=== PATIENT | male | born 1990 | race Caucasian/White ===

== ENCOUNTER 2016-04-10 16:06 | Emergency (ER) | payer MEDICAID, SELFPAY ==
[~2016-04-10 16:06] MED LIST: /TAMS4CA GT; ABIL1TAB5 PO; CIPR500T89 PO; DEPA250T32 PO; DEPAKOTE PO; FLOM5CAP PO; MELA0.02 PO; No Historical Meds; PERC5TAB6 PO; PERCOCET PO; TAMS0.4C PO; TRAZ50TA4 PO; ZOFR20TA PO
[2016-04-10] MEDS ORDERED: ACETAMINOPHEN 325 MG TAB As Ordered ONE (17:51)
[2016-04-10 18:02] LABS: BASO # 0.1 K/mm3 (0.0-0.2); EOS # 0.2 K/mm3 (0.0-0.50); EOS % 2.4 % (0.0-3.0); LARGE UNSTAINED CELL # 0.2 K/mm3 (0.0-0.4); LARGE UNSTAINED CELL % 3.6 % (0.0-4.0); LYMPH # 1.7 K/mm3 (1.5-6.5); LYMPH % 25.3 % (24.0-44.0); MEAN CORPUSCULAR HEMOGLOBIN 30.5 pg (27.0-33.0); MEAN CORPUSCULAR HGB CONC 34.6 g/dl (32.0-36.5); MEAN CORPUSCULAR VOLUME 88.4 fl (80.0-96.0); MONO # 0.5 K/mm3 (0.0-0.8); MONO % 6.8 % (0.0-5.0); NEUTROPHILS # 4.1 K/mm3 (1.8-7.7); NEUTROPHILS % 60.8 % (36.0-66.0); PLATELET COUNT, AUTOMATED 220 k/mm3 (150-450); RED CELL DISTRIBUTION WIDTH 12.1 % (11.5-14.5); WHITE BLOOD COUNT 6.7 K/mm3 (4.0-10.0)
[2016-04-10 18:05] LABS: CALCIUM OXALATE CRYSTALS SMALL
[2016-04-10 18:38] LABS: ANION GAP 2 MEQ/L (8-16); BLOOD UREA NITROGEN 18 MG/DL (7-18); CALCIUM LEVEL 8.8 MG/DL (8.5-10.1); CARBON DIOXIDE LEVEL 36 MEQ/L (21-32); CHLORIDE LEVEL 105 MEQ/L (98-107); CREATININE FOR GFR 0.82 MG/DL (0.70-1.30); GLOMERULAR FILTRATION RATE > 60.0 (>60); GLUCOSE, FASTING 75 MG/DL (70-105); POTASSIUM SERUM 4.7 MEQ/L (3.5-5.1); SODIUM LEVEL 143 MEQ/L (136-145)
--- NOTE | 2016-04-10 19:50 | REPUSA ---
CLINICAL HISTORY: History of bilateral hernia age 3 and 16. Both of hernias was reported. TECHNIQUE: Realtime sonographic images were obtained in multiple projections. Evaluation of right in guinal hernia. COMMENTS: Right inguinal mesenteric fat hernia seen with Valsalva. Hernia is reducible with rest. IMPRESSION: Right inguinal mesenteric fat hernia seen with Valsalva. Hernia is reducible with rest. Thank you for your kind referral of this patient. We appreciate the opportunity to participate in thi s patient's care.
--- NOTE | 2016-04-10 20:16 | EDDOCDS ---
Nurse's Notes [facility] Name: Elmer Marley Age: 25 yrs Sex: Male : 1990 Arrival Date: 04/10/2016 Time: 16:06 Bed PD Private MD: NO PRIMARY PHYSICIAN, . Diagnosis: Unilateral inguinal hernia, without obstruction or gangrene-right side, reducible and only containing mesenteric fat Presentation: 04/10 16:21 Presenting complaint: Patient states: Right inguinal swelling and pain for 2 days. rs3 Adult Sepsis Screening: The patient does not have new or worsening altered mentation. Patient's respiratory rate is less than 22. Systolic blood pressure is greater than 100. Patient has a qSOFA score of 0- Negative Sepsis Screen. Suicide/Homicide risk assessment- the patient denies having any suicidal and/or homicidal ideations and does not present with any other emotional, behavioral or mental health complaints. Status: Patient is not a business services sales agent or dependent. Transition of care: patient was not received from another setting of care. 16:21 Acuity: ROB Level 4 rs3 16:21 Method Of Arrival: Walkin/Carried/Asstd rs3 Triage Assessment: 16:23 General: Appears in no apparent distress. Pain: Pain At worst was 3 out of 10 on a pain rs3 scale. HIV screening NA for this visit Offered previously. GI: Reports lower abdominal pain. Historical: - Allergies: no known allergies; - Home Meds: 1. none - PMHx: Hepatitis C; Polycystic Kidney Disease; - PSHx: Hernia repair; Lithotripsy; - Social history: Smoking status: Patient uses tobacco products, light tobacco smoker. No barriers to communication noted, The patient speaks fluent Bulgarian, Patient uses street drugs, marijuana. - Family history: Not pertinent. - : The pt / caregiver states he / she is not on anticoagulants. Home medication list is obtained from the patient. - Exposure Risk Screening:: None identified. Screenin:14 Screening information is obtained from the patient. Fall risk: No risks identified. rs3 Assistance ADL's: requires no assistance with activities of daily living. Abuse/DV Screen: The patient / caregiver reports he/she is: not in a situation that causes fear, pain or injury. Nutritional screening: No deficits noted. Advance Directives: Currently, there is no health care proxy. home support is adequate. Assessment: 20:13 General: Appears in no apparent distress, Behavior is appropriate for age, cooperative. rs3 Respiratory: Airway is patent. GI: Abdomen is non- distended Bowel sounds present X 4 quads. Abd is soft and non tender X 4 quads. Reports lower abdominal pain. Derm: Skin is pink, warm & dry. Vital Signs: 16:08 BP 128 / 87; Pulse 85; Resp 18; Temp 96.9; Pulse Ox 100% ; Weight 72.57 kg; Height 5 elp ft. 8 in. (172.72 cm); Pain 0/10; 19:58 BP 133 / 79; Pulse 73; Resp 18; Temp 97.6(T); Pulse Ox 99% on R/A; Pain 0/10; ar3 16:08 Body Mass Index 24.33 (72.57 kg, 172.72 cm) elp Vitals: 16:08 Log In Time: April 10, 2016 at 16:06. el ED Course: 16:08 Patient visited by Mari Trevino PCA. elp 16:08 NO PRIMARY PHYSICIAN, . is Private Physician. elp 16:08 Patient moved to Waiting elp 16:09 Patient visited by Mari Trevino PCA. elp 16:09 Patient moved to Pre RCE elp 16:22 Triage Initiated rs3 17:27 Patient moved to Triage 2 jo3 17:32 Ramon Hendrickson PA is PHCP. mo1 17:32 Jose Lin MD is Attending Physician. mo1 17:42 Patient visited by Ramon Hendrickson PA. mo1 17:53 Patient moved to TR3 ar3 17:53 UA Sent. ar3 17:53 BMP Sent. ar3 17:53 CBC with Diff Sent. ar3 18:34 Patient moved to Ultrasound hgl 18:54 Patient moved to TR3 hgl 19:17 [facility] Payment Agreement was scanned into [employer] and attached to record. kf3 19:56 Patient moved to PD2 / cz 20:02 Pelvis, limited US Returned. EDMS 20:08 Wilberto Callejas MD is Referral Physician. mo1 20:14 No IV's were initiated during this patient's visit. No procedures done that require rs3 assistance. 20:15 The patient / caregiver is instructed regarding the plan of care and ED course. rs3 Administered Medications: 17:52 Drug: Acetaminophen 975 mg [acetaminophen 325 mg tablet (3 tabs)] Route: PO; jo3 Order Results: Lab Order: CBC with Diff; SPEC'M 04/10/16 17:49 Test: WHITE BLOOD COUNT; Value: 6.7; Range: 4.0-10.0; Units: K/mm3; Status: F Test: RED BLOOD COUNT; Value: 4.88; Range: 4.30-6.10; Units: M/mm3; Status: F Test: HEMOGLOBIN; Value: 14.9; Range: 14.0-18.0; Units: g/dl; Status: F Test: HEMATOCRIT; Value: 43.1; Range: 42.0-52.0; Units: %; Status: F Test: MEAN CORPUSCULAR VOLUME; Value: 88.4; Range: 80.0-96.0; Units: fl; Status: F Test: MEAN CORPUSCULAR HEMOGLOBIN; Value: 30.5; Range: 27.0-33.0; Units: pg; Status: F Test: MEAN CORPUSCULAR HGB CONC; Value: 34.6; Range: 32.0-36.5; Units: g/dl; Status: F Test: RED CELL DISTRIBUTION WIDTH; Value: 12.1; Range: 11.5-14.5; Units: %; Status: F Test: PLATELET COUNT, AUTOMATED; Value: 220; Range: 150-450; Units: k/mm3; Status: F Test: NEUTROPHILS %; Value: 60.8; Range: 36.0-66.0; Units: %; Status: F Test: LYMPH %; Value: 25.3; Range: 24.0-44.0; Units: %; Status: F Test: MONO %; Value: 6.8; Range: 0.0-5.0; Abnormal: Above high normal; Units: %; Status: F Test: EOS %; Value: 2.4; Range: 0.0-3.0; Units: %; Status: F Test: BASO %; Value: 1.0; Range: 0.0-1.0; Units: %; Status: F Test: LARGE UNSTAINED CELL %; Value: 3.6; Range: 0.0-4.0; Units: %; Status: F Test: NEUTROPHILS #; Value: 4.1; Range: 1.8-7.7; Units: K/mm3; Status: F Test: LYMPH #; Value: 1.7; Range: 1.5-6.5; Units: K/mm3; Status: F Test: MONO #; Value: 0.5; Range: 0.0-0.8; Units: K/mm3; Status: F Test: EOS #; Value: 0.2; Range: 0.0-0.50; Units: K/mm3; Status: F Test: BASO #; Value: 0.1; Range: 0.0-0.2; Units: K/mm3; Status: F Test: LARGE UNSTAINED CELL #; Value: 0.2; Range: 0.0-0.4; Units: K/mm3; Status: F Lab Order: [facility] 04/10/16 17:49 Test: GLUCOSE, FASTING; Value: 75; Range: 70-105; Units: MG/DL; Status: F Test: BLOOD UREA NITROGEN; Value: 18; Range: 7-18; Units: MG/DL; Status: F Test: CREATININE FOR GFR; Value: 0.82; Range: 0.70-1.30; Units: MG/DL; Status: F Test: GLOMERULAR FILTRATION RATE; Value: > 60.0; Range: >60; Status: F Test: SODIUM LEVEL; Value: 143; Range: 136-145; Units: MEQ/L; Status: F Test: POTASSIUM SERUM; Value: 4.7; Range: 3.5-5.1; Units: MEQ/L; Status: F Test: CHLORIDE LEVEL; Value: 105; Range: 98-107; Units: MEQ/L; Status: F Test: CARBON DIOXIDE LEVEL; Value: 36; Range: 21-32; Abnormal: Above high normal; Units: MEQ/L; Status: F Test: ANION GAP; Value: 2; Range: 8-16; Abnormal: Below low normal; Units: MEQ/L; Status: F Test: CALCIUM LEVEL; Value: 8.8; Range: 8.5-10.1; Units: MG/DL; Status: F Test Note: ; Units are mL/min/1.73 m2 Chronic Kidney Disease Staging per NKF: Stage I & II GFR >=60 Normal to Mildly Decreased Stage III GFR 30-59 Moderately Decreased Stage IV GFR 15-29 Severely Decreased Stage V GFR <15 Very Little GFR Left ESRD GFR <15 on SOAP SLABBER Lab Order: UA; SPEC'M 04/10/16 17:49 Test: APPEARANCE, URINE; Value: CLEAR; Range: CLEAR; Status: F Test: COLOR, URINE; Value: YELLOW; Range: YELLOW; Status: F Test: PH,URINE; Value: 5.0; Range: 5.0-9.0; Units: UNITS; Status: F Test: SPECIFIC GRAVITY URINE AUTO; Value: 1.023; Range: 1.002-1.035; Status: F Test: PROTEIN, URINE AUTO; Value: NEGATIVE; Range: NEGATIVE; Units: mg/dL; Status: F Test: GLUCOSE, URINE (UA) AUTO; Value: NEGATIVE; Range: NEGATIVE; Units: mg/dL; Status: F Test: KETONE, URINE AUTO; Value: NEGATIVE; Range: NEGATIVE; Units: mg/dL; Status: F Test: UROBILINOGEN, URINE AUTO; Value: 2.0; Range: 0.0-2.0; Abnormal: Above high normal; Units: mg/dL; Status: F Test: BILIRUBIN, URINE AUTO; Value: NEGATIVE; Range: NEGATIVE; Status: F Test: NITRITE, URINE AUTO; Value: NEGATIVE; Range: NEGATIVE; Status: F Test: LEUKOCYTE ESTERASE, URINE AUTO; Value: TRACE; Range: NEGATIVE; Abnormal: Above high normal; Status: F Test: BLOOD, URINE BLOOD; Value: NEGATIVE; Range: NEGATIVE; Status: F Test: WBC, URINE AUTO; Value: 2; Range: 0-3; Units: /HPF; Status: F Test: RBC, URINE AUTO; Value: 3; Range: 0-3; Units: /HPF; Status: F Test: BACTERIA, URINE AUTO; Value: NEGATIVE; Range: NEGATIVE; Status: F Test: SQUAMOUS EPITHELIAL CELL UR AU; Value: 0; Range: 0-6; Units: /HPF; Status: F Test: MUCUS, URINE; Value: SMALL; Range: NEGATIVE; Status: F Test: SPERM, URINE AUTO; Value: SMALL; Range: NONE; Abnormal: Above high normal; Status: F Test: HYALINE CAST, URINE AUTO; Value: 0; Range: 0-1; Units: /LPF; Status: F Test: CALCIUM OXALATE CRYSTALS; Value: SMALL; Range: NONE; Status: F Radiology Order: Pelvis, limited US Test: Pelvis, limited US REASON FOR EXAMINATION: right inguinal pain; ; CLINICAL HISTORY: History of bilateral hernia age 3 and 16. Both of hernias was reported.; ; TECHNIQUE: Realtime sonographic images were obtained in multiple projections. Evaluation of right in; guinal hernia.; ; COMMENTS:; Right inguinal mesenteric fat hernia seen with Valsalva. Hernia is reducible with rest.; ; IMPRESSION:; Right inguinal mesenteric fat hernia seen with Valsalva. Hernia is reducible with rest.; ; Thank you for your kind referral of this patient. We appreciate the opportunity to participate in [facility]; s patient's care.; ; Outcome: 20:08 Discharge ordered by Provider. mo1 20:15 Discharge Assessment: patient administered narcotics - no. The following High Risk rs3 Discharge criteria are identified: None. Discharged to home with family. Condition: stable. Discharge instructions given to patient, Instructed on discharge instructions, follow up and referral plans. medication usage, Demonstrated understanding of instructions, medications, Pt was receptive of discharge instructions/ teaching. Prescriptions given X 1. Ultrasound Study completed. Property :Personal belongings accompany Pt. 20:16 Patient left the ED. rs3 Signatures: Dispatcher [employer] EDMS Madi Jama RN RN cz Helmerci, Jennifer, RN RN jo3 Rayo Reyes, Reg Reg kf3 Amaya Davis RN RN rs3 Bhargavi Darling, SENIOR SQL DATABASE DEVELOPER SENIOR SQL DATABASE DEVELOPER ar3 Akilah, Ramon Jansen PA PA mo1 Mari Trevino, SENIOR SQL DATABASE DEVELOPER SENIOR SQL DATABASE DEVELOPER elp MTDD
--- NOTE | 2016-04-10 20:16 | EDDOCDS ---
Physician Documentation [facility] Name: Elmer Marley Age: 25 yrs Sex: Male : 1990 Arrival Date: 04/10/2016 Time: 16:06 Bed PD Private MD: NO PRIMARY PHYSICIAN, . Disposition: 04/10/16 20:08 Discharged to Home/Self Care. Impression: Unilateral inguinal hernia, without obstruction or gangrene - right side, reducible and only containing mesenteric fat. - Condition is Stable. - Discharge Instructions: Abdominal Pain, Adult, Inguinal Hernia, Adult. - Prescriptions for [place] 5- 325 mg Oral Tablet - take 1 tablet by ORAL route every 6 hours As needed MDD: 4 tabs; 20 tablet. - Medication Reconciliation, Local Pharmacy Hours form. - Follow up: Wilberto Calljeas MD; When: Call to arrange an appointment; Reason: Recheck today's complaints, Continuance of care. - Problem is new. - Symptoms are unchanged. Historical: - Allergies: no known allergies; - Home Meds: 1. none - PMHx: Hepatitis C; Polycystic Kidney Disease; - PSHx: Hernia repair; Lithotripsy; - Social history: Smoking status: Patient uses tobacco products, light tobacco smoker. No barriers to communication noted, The patient speaks fluent Montserratian, Patient uses street drugs, marijuana. - Family history: Not pertinent. - : The pt / caregiver states he / she is not on anticoagulants. Home medication list is obtained from the patient. - Exposure Risk Screening:: None identified. Vital Signs: 04/10 16:08 BP 128 / 87; Pulse 85; Resp 18; Temp 96.9; Pulse Ox 100% ; Weight 72.57 kg / 159.99 elp lbs; Height 5 ft. 8 in. (172.72 cm); Pain 0/10; 19:58 BP 133 / 79; Pulse 73; Resp 18; Temp 97.6(T); Pulse Ox 99% on R/A; Pain 0/10; ar3 16:08 Body Mass Index 24.33 (72.57 kg, 172.72 cm) elp MDM: 17:44 Acetaminophen Tablet 975 mg PO once ordered. mo1 17:45 CBC with Diff Ordered. EDMS 17:45 BMP Ordered. EDMS 17:45 UA Ordered. EDMS 18:22 Financial registration complete. kf3 18:39 Pelvis, limited US Ordered. EDMS 18:47 UA Reviewed. mo1 18:48 BMP Reviewed. mo1 18:48 CBC with Diff Reviewed. mo1 19:17 [facility] Payment Agreement was scanned into [employer] and attached to record. kf3 Administered Medications: 17:52 Drug: Acetaminophen 975 mg [acetaminophen 325 mg tablet (3 tabs)] Route: PO; jo3 Signatures: Dispatcher [employer] EDMS Rayo Reyes, Reg Reg kf3 Amaya DavisRN RN rs3 Ramon Hendrickson PA PA mo1 Katya Johnston RN jo3 The chart was reviewed and I authenticate all verbal orders and agree with the evaluation and treatment provided.Corrections: (The following items were deleted from the chart) 18:39 17:45 Abdomen, limited+US ordered. EDMS EDMS Attachments: 19:17 [facility] Payment Agreement kf3 MTDD
--- NOTE | 2016-04-12 21:17 | EDDOCDS ---
Nurse's Notes [facility] Name: Elmer Marley Age: 25 yrs Sex: Male : 1990 Arrival Date: 04/10/2016 Time: 16:06 Bed PD Private MD: NO PRIMARY PHYSICIAN, . Diagnosis: Unilateral inguinal hernia, without obstruction or gangrene-right side, reducible and only containing mesenteric fat Presentation: 04/10 16:21 Presenting complaint: Patient states: Right inguinal swelling and pain for 2 days. rs3 Adult Sepsis Screening: The patient does not have new or worsening altered mentation. Patient's respiratory rate is less than 22. Systolic blood pressure is greater than 100. Patient has a qSOFA score of 0- Negative Sepsis Screen. Suicide/Homicide risk assessment- the patient denies having any suicidal and/or homicidal ideations and does not present with any other emotional, behavioral or mental health complaints. Status: Patient is not a director of professional services or dependent. Transition of care: patient was not received from another setting of care. 16:21 Acuity: ROB Level 4 rs3 16:21 Method Of Arrival: Walkin/Carried/Asstd rs3 Triage Assessment: 16:23 General: Appears in no apparent distress. Pain: Pain At worst was 3 out of 10 on a pain rs3 scale. HIV screening NA for this visit Offered previously. GI: Reports lower abdominal pain. Historical: - Allergies: no known allergies; - Home Meds: 1. none - PMHx: Hepatitis C; Polycystic Kidney Disease; - PSHx: Hernia repair; Lithotripsy; - Social history: Smoking status: Patient uses tobacco products, light tobacco smoker. No barriers to communication noted, The patient speaks fluent Slovak, Patient uses street drugs, marijuana. - Family history: Not pertinent. - : The pt / caregiver states he / she is not on anticoagulants. Home medication list is obtained from the patient. - Exposure Risk Screening:: None identified. Screenin:14 Screening information is obtained from the patient. Fall risk: No risks identified. rs3 Assistance ADL's: requires no assistance with activities of daily living. Abuse/DV Screen: The patient / caregiver reports he/she is: not in a situation that causes fear, pain or injury. Nutritional screening: No deficits noted. Advance Directives: Currently, there is no health care proxy. home support is adequate. Assessment: 20:13 General: Appears in no apparent distress, Behavior is appropriate for age, cooperative. rs3 Respiratory: Airway is patent. GI: Abdomen is non- distended Bowel sounds present X 4 quads. Abd is soft and non tender X 4 quads. Reports lower abdominal pain. Derm: Skin is pink, warm & dry. Vital Signs: 16:08 BP 128 / 87; Pulse 85; Resp 18; Temp 96.9; Pulse Ox 100% ; Weight 72.57 kg; Height 5 elp ft. 8 in. (172.72 cm); Pain 0/10; 19:58 BP 133 / 79; Pulse 73; Resp 18; Temp 97.6(T); Pulse Ox 99% on R/A; Pain 0/10; ar3 16:08 Body Mass Index 24.33 (72.57 kg, 172.72 cm) elp Vitals: 16:08 Log In Time: April 10, 2016 at 16:06. el ED Course: 16:08 Patient visited by Mari Trevino PCA. elp 16:08 NO PRIMARY PHYSICIAN, . is Private Physician. elp 16:08 Patient moved to Waiting elp 16:09 Patient visited by Mari Trevino PCA. elp 16:09 Patient moved to Pre RCE elp 16:22 Triage Initiated rs3 17:27 Patient moved to Triage 2 jo3 17:32 Ramon Hendrickson PA is PHCP. mo1 17:32 Jose Lin MD is Attending Physician. mo1 17:42 Patient visited by Ramon Hendrickson PA. mo1 17:53 Patient moved to TR3 ar3 17:53 UA Sent. ar3 17:53 BMP Sent. ar3 17:53 CBC with Diff Sent. ar3 18:34 Patient moved to Ultrasound hgl 18:54 Patient moved to TR3 hgl 19:17 [facility] [place] was scanned into [email or web address] and attached to record. kf3 19:56 Patient moved to PD2 / cz 20:02 Pelvis, limited US Returned. EDMS 20:08 Wilberto Callejas MD is Referral Physician. mo1 20:14 No IV's were initiated during this patient's visit. No procedures done that require rs3 assistance. 20:15 The patient / caregiver is instructed regarding the plan of care and ED course. rs3 22:24 T-Sheet-- Draft Copy was scanned into [email or web address] and attached to record. klr 04/11 12:05 Radiology Report was scanned into [email or web address] and attached to record. gb Administered Medications: 04/10 17:52 Drug: Acetaminophen 975 mg [acetaminophen 325 mg tablet (3 tabs)] Route: PO; jo3 Order Results: Lab Order: CBC with Diff; SPEC'M 04/10/16 17:49 Test: WHITE BLOOD COUNT; Value: 6.7; Range: 4.0-10.0; Units: K/mm3; Status: F Test: RED BLOOD COUNT; Value: 4.88; Range: 4.30-6.10; Units: M/mm3; Status: F Test: HEMOGLOBIN; Value: 14.9; Range: 14.0-18.0; Units: g/dl; Status: F Test: HEMATOCRIT; Value: 43.1; Range: 42.0-52.0; Units: %; Status: F Test: MEAN CORPUSCULAR VOLUME; Value: 88.4; Range: 80.0-96.0; Units: fl; Status: F Test: MEAN CORPUSCULAR HEMOGLOBIN; Value: 30.5; Range: 27.0-33.0; Units: pg; Status: F Test: MEAN CORPUSCULAR HGB CONC; Value: 34.6; Range: 32.0-36.5; Units: g/dl; Status: F Test: RED CELL DISTRIBUTION WIDTH; Value: 12.1; Range: 11.5-14.5; Units: %; Status: F Test: PLATELET COUNT, AUTOMATED; Value: 220; Range: 150-450; Units: k/mm3; Status: F Test: NEUTROPHILS %; Value: 60.8; Range: 36.0-66.0; Units: %; Status: F Test: LYMPH %; Value: 25.3; Range: 24.0-44.0; Units: %; Status: F Test: MONO %; Value: 6.8; Range: 0.0-5.0; Abnormal: Above high normal; Units: %; Status: F Test: EOS %; Value: 2.4; Range: 0.0-3.0; Units: %; Status: F Test: BASO %; Value: 1.0; Range: 0.0-1.0; Units: %; Status: F Test: LARGE UNSTAINED CELL %; Value: 3.6; Range: 0.0-4.0; Units: %; Status: F Test: NEUTROPHILS #; Value: 4.1; Range: 1.8-7.7; Units: K/mm3; Status: F Test: LYMPH #; Value: 1.7; Range: 1.5-6.5; Units: K/mm3; Status: F Test: MONO #; Value: 0.5; Range: 0.0-0.8; Units: K/mm3; Status: F Test: EOS #; Value: 0.2; Range: 0.0-0.50; Units: K/mm3; Status: F Test: BASO #; Value: 0.1; Range: 0.0-0.2; Units: K/mm3; Status: F Test: LARGE UNSTAINED CELL #; Value: 0.2; Range: 0.0-0.4; Units: K/mm3; Status: F Lab Order: [facility]; SPEC'M 04/10/16 17:49 Test: GLUCOSE, FASTING; Value: 75; Range: 70-105; Units: MG/DL; Status: F Test: BLOOD UREA NITROGEN; Value: 18; Range: 7-18; Units: MG/DL; Status: F Test: CREATININE FOR GFR; Value: 0.82; Range: 0.70-1.30; Units: MG/DL; Status: F Test: GLOMERULAR FILTRATION RATE; Value: > 60.0; Range: >60; Status: F Test: SODIUM LEVEL; Value: 143; Range: 136-145; Units: MEQ/L; Status: F Test: POTASSIUM SERUM; Value: 4.7; Range: 3.5-5.1; Units: MEQ/L; Status: F Test: CHLORIDE LEVEL; Value: 105; Range: 98-107; Units: MEQ/L; Status: F Test: CARBON DIOXIDE LEVEL; Value: 36; Range: 21-32; Abnormal: Above high normal; Units: MEQ/L; Status: F Test: ANION GAP; Value: 2; Range: 8-16; Abnormal: Below low normal; Units: MEQ/L; Status: F Test: CALCIUM LEVEL; Value: 8.8; Range: 8.5-10.1; Units: MG/DL; Status: F Test Note: ; Units are mL/min/1.73 m2 Chronic Kidney Disease Staging per NKF: Stage I & II GFR >=60 Normal to Mildly Decreased Stage III GFR 30-59 Moderately Decreased Stage IV GFR 15-29 Severely Decreased Stage V GFR <15 Very Little GFR Left ESRD GFR <15 on [employer] Lab Order: UA; SPEC'M 04/10/16 17:49 Test: APPEARANCE, URINE; Value: CLEAR; Range: CLEAR; Status: F Test: COLOR, URINE; Value: YELLOW; Range: YELLOW; Status: F Test: PH,URINE; Value: 5.0; Range: 5.0-9.0; Units: UNITS; Status: F Test: SPECIFIC GRAVITY URINE AUTO; Value: 1.023; Range: 1.002-1.035; Status: F Test: PROTEIN, URINE AUTO; Value: NEGATIVE; Range: NEGATIVE; Units: mg/dL; Status: F Test: GLUCOSE, URINE (UA) AUTO; Value: NEGATIVE; Range: NEGATIVE; Units: mg/dL; Status: F Test: KETONE, URINE AUTO; Value: NEGATIVE; Range: NEGATIVE; Units: mg/dL; Status: F Test: UROBILINOGEN, URINE AUTO; Value: 2.0; Range: 0.0-2.0; Abnormal: Above high normal; Units: mg/dL; Status: F Test: BILIRUBIN, URINE AUTO; Value: NEGATIVE; Range: NEGATIVE; Status: F Test: NITRITE, URINE AUTO; Value: NEGATIVE; Range: NEGATIVE; Status: F Test: LEUKOCYTE ESTERASE, URINE AUTO; Value: TRACE; Range: NEGATIVE; Abnormal: Above high normal; Status: F Test: BLOOD, URINE BLOOD; Value: NEGATIVE; Range: NEGATIVE; Status: F Test: WBC, URINE AUTO; Value: 2; Range: 0-3; Units: /HPF; Status: F Test: RBC, URINE AUTO; Value: 3; Range: 0-3; Units: /HPF; Status: F Test: BACTERIA, URINE AUTO; Value: NEGATIVE; Range: NEGATIVE; Status: F Test: SQUAMOUS EPITHELIAL CELL UR AU; Value: 0; Range: 0-6; Units: /HPF; Status: F Test: MUCUS, URINE; Value: SMALL; Range: NEGATIVE; Status: F Test: SPERM, URINE AUTO; Value: SMALL; Range: NONE; Abnormal: Above high normal; Status: F Test: HYALINE CAST, URINE AUTO; Value: 0; Range: 0-1; Units: /LPF; Status: F Test: CALCIUM OXALATE CRYSTALS; Value: SMALL; Range: NONE; Status: F Radiology Order: Pelvis, limited US Test: Pelvis, limited US REASON FOR EXAMINATION: right inguinal pain; ; CLINICAL HISTORY: History of bilateral hernia age 3 and 16. Both of hernias was reported.; ; TECHNIQUE: Realtime sonographic images were obtained in multiple projections. Evaluation of right in; guinal hernia.; ; COMMENTS:; Right inguinal mesenteric fat hernia seen with Valsalva. Hernia is reducible with rest.; ; IMPRESSION:; Right inguinal mesenteric fat hernia seen with Valsalva. Hernia is reducible with rest.; ; Thank you for your kind referral of this patient. We appreciate the opportunity to participate in [facility]; s patient's care.; ; Outcome: 20:08 Discharge ordered by Provider. mo1 20:15 Discharge Assessment: patient administered narcotics - no. The following High Risk rs3 Discharge criteria are identified: None. Discharged to home with family. Condition: stable. Discharge instructions given to patient, Instructed on discharge instructions, follow up and referral plans. medication usage, Demonstrated understanding of instructions, medications, Pt was receptive of discharge instructions/ teaching. Prescriptions given X 1. Ultrasound Study completed. Property :Personal belongings accompany Pt. 20:16 Patient left the ED. rs3 Signatures: Dispatcher [employer] EDMS Madi Jama, RN Radha Valdovinos, Reg Reg gb Katya Johnston RN RN Rayo Dukes, Reg Reg [id number] Amaya Davis RN RN rs3 Bhargavi Darling, AGENCY SALES MANAGEMENT ASSISTANT AGENCY SALES MANAGEMENT ASSISTANT danica3 Chang Isbell Michael, PA PA mo1 Mari Trevino, AGENCY SALES MANAGEMENT ASSISTANT AGENCY SALES MANAGEMENT ASSISTANT Dotty Alonso Chart Complete MTDD
--- NOTE | 2016-04-12 21:17 | EDDOCDS ---
[facility]ation [facility] Name: Elmer Marley Age: 25 yrs Sex: Male : 1990 Arrival Date: 04/10/2016 Time: 16:06 Bed PD Private MD: NO PRIMARY PHYSICIAN, . Disposition: 04/10/16 20:08 Discharged to Home/Self Care. Impression: Unilateral inguinal hernia, without obstruction or gangrene - right side, reducible and only containing mesenteric fat. - Condition is Stable. - Discharge Instructions: Abdominal Pain, Adult, Inguinal Hernia, Adult. - Prescriptions for [place] 5- 325 mg Oral Tablet - take 1 tablet by ORAL route every 6 hours As needed MDD: 4 tabs; 20 tablet. - Medication Reconciliation, Local Pharmacy Hours form. - Follow up: Wilberto Callejas MD; When: Call to arrange an appointment; Reason: Recheck today's complaints, Continuance of care. - Problem is new. - Symptoms are unchanged. Historical: - Allergies: no known allergies; - Home Meds: 1. none - PMHx: Hepatitis C; Polycystic Kidney Disease; - PSHx: Hernia repair; Lithotripsy; - Social history: Smoking status: Patient uses tobacco products, light tobacco smoker. No barriers to communication noted, The patient speaks fluent Filipino, Patient uses street drugs, marijuana. - Family history: Not pertinent. - : The pt / caregiver states he / she is not on anticoagulants. Home medication list is obtained from the patient. - Exposure Risk Screening:: None identified. Vital Signs: 04/10 16:08 BP 128 / 87; Pulse 85; Resp 18; Temp 96.9; Pulse Ox 100% ; Weight 72.57 kg / 159.99 elp lbs; Height 5 ft. 8 in. (172.72 cm); Pain 0/10; 19:58 BP 133 / 79; Pulse 73; Resp 18; Temp 97.6(T); Pulse Ox 99% on R/A; Pain 0/10; ar3 16:08 Body Mass Index 24.33 (72.57 kg, 172.72 cm) elp MDM: 17:44 Acetaminophen Tablet 975 mg PO once ordered. mo1 17:45 CBC with Diff Ordered. EDMS 17:45 BMP Ordered. EDMS 17:45 UA Ordered. EDMS 18:22 Financial registration complete. kf3 18:39 Pelvis, limited US Ordered. EDMS 18:47 UA Reviewed. mo1 18:48 BMP Reviewed. mo1 18:48 CBC with Diff Reviewed. mo1 19:17 [facility] Payment Agreement was scanned into [employer] and attached to record. kf3 22:24 T-Sheet-- Draft Copy was scanned into [employer] and attached to record. klr 04/11 12:05 Radiology Report was scanned into [employer] and attached to record. gb Administered Medications: 04/10 17:52 Drug: Acetaminophen 975 mg [acetaminophen 325 mg tablet (3 tabs)] Route: PO; jo3 Signatures: Dispatcher [employer] EDMS Radha Mane, Reg Reg gb Rayo Reyes, Reg Reg kf3 Amaya Davis RN RN rs3 Ramon Hendrickson PA PA mo1 Dotty Sultanar Katya Johnston RN jo3 The chart was reviewed and I authenticate all verbal orders and agree with the evaluation and treatment provided.Corrections: (The following items were deleted from the chart) 18:39 17:45 Abdomen, limited+US ordered. EDMS EDMS Attachments: 19:17 [facility] Payment Agreement kf3 22:24 T-Sheet-- Draft Copy klr Chart Complete MTDD
--- NOTE | 2016-04-12 21:17 | EDDOCDS ---
Physician Documentation [facility] Name: Elmer Marley Age: 25 yrs Sex: Male : 1990 Arrival Date: 04/10/2016 Time: 16:06 Bed PD Private MD: NO PRIMARY PHYSICIAN, . Disposition: 04/10/16 20:08 Discharged to Home/Self Care. Impression: Unilateral inguinal hernia, without obstruction or gangrene - right side, reducible and only containing mesenteric fat. - Condition is Stable. - Discharge Instructions: Abdominal Pain, Adult, Inguinal Hernia, Adult. - Prescriptions for [place] 5- 325 mg Oral Tablet - take 1 tablet by ORAL route every 6 hours As needed MDD: 4 tabs; 20 tablet. - Medication Reconciliation, Local Pharmacy Hours form. - Follow up: Wilberto Callejas MD; When: Call to arrange an appointment; Reason: Recheck today's complaints, Continuance of care. - Problem is new. - Symptoms are unchanged. Historical: - Allergies: no known allergies; - Home Meds: 1. none - PMHx: Hepatitis C; Polycystic Kidney Disease; - PSHx: Hernia repair; Lithotripsy; - Social history: Smoking status: Patient uses tobacco products, light tobacco smoker. No barriers to communication noted, The patient speaks fluent Gambian, Patient uses street drugs, marijuana. - Family history: Not pertinent. - : The pt / caregiver states he / she is not on anticoagulants. Home medication list is obtained from the patient. - Exposure Risk Screening:: None identified. Vital Signs: 04/10 16:08 BP 128 / 87; Pulse 85; Resp 18; Temp 96.9; Pulse Ox 100% ; Weight 72.57 kg / 159.99 elp lbs; Height 5 ft. 8 in. (172.72 cm); Pain 0/10; 19:58 BP 133 / 79; Pulse 73; Resp 18; Temp 97.6(T); Pulse Ox 99% on R/A; Pain 0/10; ar3 16:08 Body Mass Index 24.33 (72.57 kg, 172.72 cm) elp MDM: 17:44 Acetaminophen Tablet 975 mg PO once ordered. mo1 17:45 CBC with Diff Ordered. EDMS 17:45 BMP Ordered. EDMS 17:45 UA Ordered. EDMS 18:22 Financial registration complete. kf3 18:39 Pelvis, limited US Ordered. EDMS 18:47 UA Reviewed. mo1 18:48 BMP Reviewed. mo1 18:48 CBC with Diff Reviewed. mo1 19:17 [facility] Payment Agreement was scanned into [employer] and attached to record. kf3 22:24 T-Sheet-- Draft Copy was scanned into [employer] and attached to record. klr 04/11 12:05 Radiology Report was scanned into [employer] and attached to record. gb Administered Medications: 04/10 17:52 Drug: Acetaminophen 975 mg [acetaminophen 325 mg tablet (3 tabs)] Route: PO; jo3 Signatures: Dispatcher [employer] EDMS Radha Mane, Reg Reg gb Rayo Reyes, Reg Reg kf3 Amaya Davis RN RN rs3 Ramon Hendrickson PA PA mo1 Dotty Sultanar Katya Johnston RN jo3 The chart was reviewed and I authenticate all verbal orders and agree with the evaluation and treatment provided.Corrections: (The following items were deleted from the chart) 18:39 17:45 Abdomen, limited+US ordered. EDMS EDMS Attachments: 19:17 [facility] Payment Agreement kf3 22:24 T-Sheet-- Draft Copy klr Chart Complete MTDD
== END 2016-04-10 20:16 | disposition home or self-care (01) ==
LOC: M ED 16:06
DX: K40.90 Unilateral inguinal hernia, without obstruction or gangrene, not specified as recurrent (principal); R10.9 Unspecified abdominal pain; B18.2 Chronic viral hepatitis C; Q61.3 Polycystic kidney, unspecified; F17.210 Nicotine dependence, cigarettes, uncomplicated

== ENCOUNTER 2016-05-16 05:25 | Inpatient (IN) | payer MEDICAID, SELFPAY ==
[~2016-05-16] VITALS: Ht 172.7 cm; Wt 71.8 kg
[2016-05-16 05:41] LABS: BASO % 0.4 % (0.0-1.0); EOS # 0.1 K/mm3 (0.0-0.50); EOS % 0.9 % (0.0-3.0); LARGE UNSTAINED CELL # 0.1 K/mm3 (0.0-0.4); LYMPH # 1.8 K/mm3 (1.5-6.5); LYMPH % 17.2 % (24.0-44.0); MEAN CORPUSCULAR HEMOGLOBIN 30.8 pg (27.0-33.0); MEAN CORPUSCULAR HGB CONC 34.9 g/dl (32.0-36.5); MEAN CORPUSCULAR VOLUME 88.2 fl (80.0-96.0); MONO # 0.6 K/mm3 (0.0-0.8); MONO % 6.1 % (0.0-5.0); NEUTROPHILS # 7.2 K/mm3 (1.8-7.7); NEUTROPHILS % 74.4 % (36.0-66.0); PLATELET COUNT, AUTOMATED 231 k/mm3 (150-450); RED CELL DISTRIBUTION WIDTH 12.3 % (11.5-14.5); WHITE BLOOD COUNT 9.6 K/mm3 (4.0-10.0)
[2016-05-16] MEDS ORDERED: ADACEL/BOOSTRIX VACCINE (DIPHTH/PERTUSS/ACELL/TETANUS)0.5ML SYR (90715) As Ordered ONE (05:53)
[2016-05-16 06:06] LABS: ALBUMIN 4.3 GM/DL (3.2-5.2); ALBUMIN/GLOBULIN RATIO 1.26 (1.00-1.93); ALKALINE PHOSPHATASE 64 U/L (45-117); ALT/SGPT 248 U/L (12-78); ANION GAP 10 MEQ/L (8-16); AST/SGOT 80 U/L (15-37); BILIRUBIN,DIRECT 0.4 MG/DL (0.0-0.2); BILIRUBIN,TOTAL 1.8 MG/DL (0.2-1.0); BLOOD UREA NITROGEN 12 MG/DL (7-18); CALCIUM LEVEL 8.5 MG/DL (8.5-10.1); CARBON DIOXIDE LEVEL 25 MEQ/L (21-32); CHLORIDE LEVEL 105 MEQ/L (98-107); CREATININE FOR GFR 1.12 MG/DL (0.70-1.30); GLOMERULAR FILTRATION RATE > 60.0 (>60); GLUCOSE, FASTING 130 MG/DL (70-105); POTASSIUM SERUM 3.5 MEQ/L (3.5-5.1); SODIUM LEVEL 140 MEQ/L (136-145); TOTAL PROTEIN 7.7 GM/DL (6.4-8.2)
--- NOTE | 2016-05-16 06:20 | REPUSA ---
CLINICAL HISTORY: Neck pain. TECHNIQUE: Multiple axial images were obtained through the cervical spine. Images were also reconstru cted in coronal and sagittal planes. The study was performed without IV contrast. COMMENTS: There is no fracture or spondylolisthesis visualized. The paraspinal soft tissues are unremarkable. T here are no lytic or blastic lesions. Straightening of cervical lordosis is seen, suggesting muscular spasm. There is evidence of minimal m ultilevel disk disease, demonstrated by minimal osteophytosis and endplate sclerosis. No significant disk herniation is noted at any level. Canal and foramina remain patent. IMPRESSION: 1. No fracture or spondylolisthesis. 2. Straightening of cervical lordosis is seen, suggesting muscular spasm. 3. Minimal multilevel spondylosis. Thank you for your kind referral of this patient.
[2016-05-16] MEDS ORDERED: DERMABOND TOPICAL SKIN ADHESIVE As Ordered ONE (07:09)
[2016-05-16 07:17] LABS: CONTROL LINE INT CTR LINE PRESENT; METHADONE URINE NEGATIVE (NEGATIVE); TRICYCLIC ANTIDEPRESS URINE NEGATIVE (NEGATIVE)
--- NOTE | 2016-05-16 07:54 | REP ---
Clinical: Trauma . Comparison: 06/20/2009 . Findings: The ventricles, sulci, and cisterns are normal in position and appearance. Valencia-white differentiation is maintained. No acute intracranial hemorrhage, mass/mass effect, pathology or trauma/injury. No evidence for acute infarction. No extra-axial fluid collection. Calvarium is intact. Paranasal sinuses and mastoid air cells are clear. Small area of scalp swelling over the frontal bone. Impression: Normal noncontrast head CT. No evidence for acute intracranial pathology or trauma/injury. Signed by Christian Sierar MD 05/16/2016 07:46 A
--- NOTE | 2016-05-16 07:56 | REP ---
Clinical: Trauma . Comparison: 06/20/2009 . Findings: The mediastinum and cardiac silhouette are stable and within normal limits for portable technique. The lung smalls are clear without acute consolidation, effusion, or pneumothorax. Skeletal structures are intact. Impression: Normal portable chest x-ray Signed by Christian Sierra MD 05/16/2016 07:47 A
--- NOTE | 2016-05-16 08:08 | REP ---
Clinical: Trauma. Technique: AP, lateral, bilateral oblique views of the left hand. Comparison: 02/21/2016. Findings: Old fracture at the base of the fifth metacarpal bone is again identified. No new, acute fracture or dislocation. Surrounding soft tissues unremarkable. Joint space is normal. Impression: Old fracture at the base of the fifth metacarpal bone. No acute fracture or dislocation identified. Signed by Christian Sierra MD 05/16/2016 07:59 A
[2016-05-16] MEDS: SERTRALINE 100 MG TAB PO SCH (09:00)
[2016-05-16] MEDS: NICOTINE 21MG/24HR 1 EA TRANSDERMAL TD SCH (09:00)
--- NOTE | 2016-05-16 18:33 | EDDOCDS ---
Physician Documentation [facility] Name: Elmer Marley Age: 26 yrs Sex: Male : 1990 Arrival Date: 05/16/2016 Time: 05:25 Bed [facility] Private MD: Disposition: 05/16/16 11:51 Hospitalization ordered by Zana Davila for Inpatient Admission. Preliminary diagnosis is Suicidal ideations. - Bed requested for Admit. - Status is Inpatient Admission. pjf - Condition is Stable. - Problem is new. - Symptoms are unchanged. Historical: - Allergies: No known drug Allergies; - Home Meds: 1. none - PMHx: Hepatitis C; Polycystic Kidney Disease; - PSHx: Hernia repair; Lithotripsy; - Social history: Smoking status: Patient uses tobacco products, current every day smoker. Patient uses street drugs, cocaine, heroin, No barriers to communication noted, The patient speaks fluent Botswanan, Speaks appropriately for age. - Family history: Not pertinent. - Immunization history: Last tetanus immunization: unknown. - : The pt / caregiver states he / she is not on anticoagulants. Home medication list is obtained from the patient. - Last oral intake was: yesterday. - Exposure Risk Screening:: None identified. Vital Signs: 05/16 05:32 BP 140 / 91 (auto/); ko2 05:33 BP 140 / 91 LA Supine (auto/reg); Pulse 88 MON; Resp 20 S; Temp 99.5(O); Pulse Ox 96% cln on R/A; Weight 69.8 kg / 153.88 lbs (M); Height 5 ft. 8 in. (172.72 cm) (R); Pain 0/10; 05:34 Pulse 92 MON; Pulse Ox 95% ; ko2 05:45 BP 138 / 93 (auto/); ko2 05:46 Pulse 90 MON; Pulse Ox 96% ; ko2 06:02 BP 137 / 85 (auto/); ko2 06:03 Pulse 101 MON; Pulse Ox 98% ; ko2 06:17 BP 138 / 83 (auto/); jmk 06:18 Pulse 88 MON; Pulse Ox 100% ; jmk 06:32 BP 144 / 86 (auto/); jmk 06:32 Pulse 91 MON; jmk 06:47 BP 137 / 85 (auto/); jmk 06:47 Pulse 79 MON; jmk 07:02 BP 140 / 89 (auto/); jmk 07:03 Pulse 71 MON; Pulse Ox 99% ; jmk 07:17 BP 132 / 84 (auto/); jmk 07:18 Pulse 81 MON; Pulse Ox 99% ; jmk 08:00 BP 133 / 85; Pulse 84; Resp 16; Temp 97.6; Pulse Ox 98% ; jmk 16:14 BP 101 / 57; Pulse 78; Resp 17; Temp 98; Pulse Ox 97% ; mb9 18:24 BP 121 / 80; Pulse 75; Resp 18; Temp 97.3(O); Pulse Ox 97% on R/A; Pain 0/10; mb9 05:33 Body Mass Index 23.40 (69.80 kg, 172.72 cm) cln Trauma Score (Adult): 05:44 Eye Response: spontaneous(1); Verbal Response: oriented(1); Motor Response: obeys ko2 commands(2); Systolic BP: > 89 mm Hg(4); Respiratory Rate: 10 to 29 per min(4); Katie Score: 15; Trauma Score: 12 MDM: 05:34 NS 0.9% 1000 ml IV at bolus once ordered. mm11 05:34 Tetanus- Diptheria-Acellular Pertussis 0.5 ml IM once; Routine booster 10-64yrs, >64 mm11 with child contact [place] ordered. 05:34 Media Sales Consultant/Pulse Ox/q 15 min VS ordered. mm11 05:34 Accucheck ordered. mm11 05:34 IV Saline Lock ordered. mm11 05:34 Rhythm Strip to chart ordered. mm11 05:34 Trauma Level 2 Designation ordered. mm11 05:34 Consult PFS/PSA/Manager Service Desk ordered. mm11 05:34 Consult PFS/PSA/Manager Service Desk: Patient's case requires discussion with on-call mm11 Psychiatrist ordered. 05:34 PSA/PFS to call Nursing Planning Consultant, to enter patient data on [place] Safe Act if patient mm11 involuntarily admitted or transferred for SI or HI ordered. 05:34 Confirm accurate psychiatric medication list and times of last dosage ordered. mm11 05:34 Detain Pt Until Medically/PFS Cleared ordered. mm11 05:35 CBC with Diff Ordered. EDMS 05:35 Type & Screen Ordered. EDMS 05:35 Acetaminophen Level Ordered. EDMS 05:35 Basic Metabolic Profile Ordered. EDMS 05:35 Drug Eval Toxicology ED Only Ordered. EDMS 05:35 Ethyl Alcohol (ethanol) Ordered. EDMS 05:35 Liver Profile Ordered. EDMS 05:35 Salicylate Level Ordered. EDMS 05:35 Thyroid Stimulating Hormone Ordered. EDMS 05:35 CT Head Without Contrast Ordered. EDMS 05:36 ECG WITH READING ER PHYS+CARDIAG ordered. EDMS 05:36 CT Spine,Cervical W/o Contrast Ordered. EDMS 05:37 Chest, 1 View Ordered. EDMS 05:37 Hand, Complete Ordered. EDMS 07:09 Dermabond to bedside ordered. mm11 07:10 CBC with Diff Reviewed. mm11 07:10 Acetaminophen Level Reviewed. mm11 07:10 Basic Metabolic Profile Reviewed. mm11 07:10 Liver Profile Reviewed. mm11 07:10 Salicylate Level Reviewed. mm11 07:10 Type & Screen Reviewed. mm11 07:10 Ethyl Alcohol (ethanol) Reviewed. mm11 07:10 Thyroid Stimulating Hormone Reviewed. mm11 07:10 CT Spine,Cervical W/o Contrast Reviewed. mm11 07:25 Drug Eval Toxicology ED Only Reviewed. mm11 07:36 Financial registration complete. lg 08:33 [facility] [place] was scanned into [employer] and attached to record. lg 09:19 Consult PFS/PSA/Manager Service Desk complete. ca 09:19 Consult PFS/PSA/Manager Service Desk: Patient's case requires discussion with on-call ca Psychiatrist complete. 09:19 PSA/PFS to call Nursing Planning Consultant, to enter patient data [place] Safe [place] if patient ca involuntarily admitted or transferred for SI or HI complete. 11:11 REGULAR DIET PLASTIC ALMEIDA+DIET ordered. EDMS 15:15 REGULAR DIET PLASTIC ALMEIDA+DIET ordered. EDMS 15:48 ECG/EKG was scanned into [employer] and attached to record. gb 17:35 Admit to IMHU: ordered. EDMS 17:49 MHE Legal paperwork was scanned into [employer] and attached to record. ml4 Administered Medications: 06:06 Drug: NS 0.9% 1000 ml [sodium chloride 0.9 % intravenous solution] Route: IV; Rate: ko2 bolus; Site: right antecubital; 06:06 Drug: Tetanus- Diptheria-Acellular Pertussis 0.5 ml [diphth,pertussis(acel),tetanus 2.5 ko2 Lf unit-8 mcg-5 Lf/0.5mL IM syringe (0.5 mL)] {Sustainability Project Coordinator: [employer]. Exp: 05/12/2018. Lot #: [id number]. } Route: IM; Site: right deltoid; Signatures: Dispatcher [employer] EDMS aWndy Brand MD MD sd1 Ofelia Sewell, PSA PSA ca Radha Mane, Reg Reg gb Abdias Valencia, Reg Reg lg Mariangel, Davidson, Security Aide Securf Dixie Mcknight, PSA PSA ml4 Brian Brown, DO mm11 Erika Larry RN RN ko2 The chart was reviewed and I authenticate all verbal orders and agree with the evaluation and treatment provided.Corrections: (The following items were deleted from the chart) 06:06 05:35 Apply Krystal Butterfield to Patient. ordered. mm11 ko2 Attachments: 08:33 [facility] [place] Agreement lg 15:48 ECG/EKG gb MTDD
--- NOTE | 2016-05-16 18:33 | EDDOCDS ---
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 patient.; ; Radiology Order: Chest, 1 View Test: Chest, 1 View REASON FOR EXAMINATION: Trauma; Clinical: Trauma .; ; Comparison: 06/20/2009 .; ; Findings:; The mediastinum and cardiac silhouette are stable and within normal limits for; portable technique. The lung smalls are clear without acute consolidation,; effusion, or pneumothorax. Skeletal structures are intact.; ; Impression:; Normal portable chest x-ray; ; ; Signed by; Christian Sierra MD 05/16/2016 07:47 A; Radiology Order: Hand, Complete Test: Hand, Complete REASON FOR EXAMINATION: Trauma; Clinical: Trauma.; ; Technique: AP, lateral, bilateral oblique views of the left hand.; ; Comparison: 02/21/2016.; ; Findings:; Old fracture at the base of the fifth metacarpal bone is again identified. No; new, acute fracture or dislocation. Surrounding soft tissues unremarkable.; Joint space is normal.; ; Impression:; Old fracture at the base of the fifth metacarpal bone.; No acute fracture or dislocation identified.; ; ; Signed by; Christian Sierra MD 05/16/2016 07:59 A; Outcome: 06:08 CT Study completed. ko2 11:51 Decision to Hospitalize by Provider. sd1 18:25 Discharge Assessment: Patient awake, alert and oriented x 3. No cognitive and/or mb9 functional deficits noted. Patient verbalized understanding of disposition instructions. patient administered narcotics - no. The following High Risk Discharge criteria are identified: None. Admitted to Psych. Condition: good Condition: stable Condition: improved. Property :Personal belongings accompany Pt. 18:32 Patient left the ED. pjf Signatures: Dispatcher [employer] EDMS Wandy Brand MD MD sd1 Cinthia Urias RN RN kcs Knapp, Jean,RN Ofelia Ortiz, PSA PSA ca Alhaji, Radha, Reg Reg gb Ganter, LoriLee, Reg Reg lg Mariangel, Davidson, Security Aide Securpjf Beth Sosa, Deportation Examiner Unit ml3 Dixie Mcknight, PSA PSA ml4 Brian Brown, DO DO mm11 Tamiko Friend, POULTRY FIELD SERVICE TECHNICIAN POULTRY FIELD SERVICE TECHNICIAN david Zenon Hoffman jml1 Katya Reyes,RN RN js13 Erika Larry,RN RN ko2 Camden Cortez, POULTRY FIELD SERVICE TECHNICIAN POULTRY FIELD SERVICE TECHNICIAN jrd Ramon Phillips,RN RN mb9 Tyra, Tashia, POULTRY FIELD SERVICE TECHNICIAN POULTRY FIELD SERVICE TECHNICIAN cln Corrections: (The following items were deleted from the chart) 07:12 06:41 Psych Safety Check: Location: Visual Assessment: jeremy Carreon 07:12 06:58 Psych Safety Check: Location: Visual Assessment: jeremy Carreon MTDD
[2016-05-16] MEDS ORDERED: ONDANSETRON 4 MG TAB (S0181) PO PRN (19:45)
[2016-05-16] MEDS ORDERED: MOM 30ML SUSPENSION UDC PO PRN (19:45)
[2016-05-16] MEDS ORDERED: cloNIDine 0.1 MG TAB PO PRN (19:45)
[2016-05-16] MEDS ORDERED: MAALOX 30 ML SUSP *UDC PO PRN (19:45)
[2016-05-16] MEDS ORDERED: LOPERAMIDE 2 MG CAP PO PRN (19:45)
[2016-05-16] MEDS ORDERED: METHOCARBAMOL 750 MG TAB PO PRN (19:45)
--- NOTE | 2016-05-16 20:11 | ECGEPIP ---
Stationary ECG Study [facility] - ED Test Date: 2016-05-16 Pat Name: IMANI BOSWELL Department: Room: - Gender: M [employer] Supervisor: : 1990 Requested By: JIMMY Fields Order Number: [id number] Reading MD: Wandy Brand Measurements Intervals [place] Rate: 91 P: 45 PA: 112 QRS: 43 QRSD: 87 T: 30 QT: 349 QTc: 431 Interpretive Statements SINUS RHYTHM WITH SINUS ARRHYTHMIA WITH SHORT PA INTERVAL NONSPECIFIC T-WAVE ABNORMALITY Electronically Signed On 05-16-2016 20:10:53 EST by Wandy Brand
[2016-05-16] MEDS: traZODone 50 MG TAB PO PRN (20:39)
[2016-05-16] MEDS: IBUPROFEN 400 MG TAB PO PRN (20:40)
[2016-05-17 06:34] VITALS: BP 168/72
[2016-05-17] MEDS: IBUPROFEN 400 MG TAB PO PRN ×3 (08:03→20:45)
[2016-05-17] MEDS: SERTRALINE 100 MG TAB PO SCH (08:03)
[2016-05-17] MEDS: NICOTINE 21MG/24HR 1 EA TRANSDERMAL TD SCH (08:30)
[2016-05-17 18:00] VITALS: BP 124/74
[2016-05-17] MEDS: traZODone 50 MG TAB PO PRN (20:43)
[2016-05-18] MEDS: IBUPROFEN 400 MG TAB PO PRN (06:29)
[2016-05-18 06:44] VITALS: BP 106/53
[2016-05-18] MEDS: SERTRALINE 100 MG TAB PO SCH (08:08)
[2016-05-18] MEDS: NICOTINE 21MG/24HR 1 EA TRANSDERMAL TD SCH (08:08)
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
--- NOTE | 2016-05-18 08:49 | IPNPDOC ---
[facility] Progress Note Progress Note DATE OF SERVICE: 05/18/16 SUBJECTIVE: Patient continues to be activated/hypomanic behavior. He reports his mood as "good" today. Patient is medication compliant and reports no medication side effects. Patient reports fair sleep last night and reports appetite within normal limits. Patient denies SI and HI. He reports no current opiate withdrawal symptoms. He reports his use of IV heroin and IV cocaine was his first IV drug use in greater than 1 year. Patient expresses insight that his his chronic use of powder cocaine since his release from penitentiary 02/20/2016 lead to his decreased mood and increased anger. Patient reports no proof or documentation, but being told that the restraining order preventing him from seeing his child has gone from temporary permit. Patient focused on maintaining his sobriety. Patient focused on applications to an inpatient substance abuse treatment program. OBJECTIVE: VITAL SIGNS: See below. LABORATORY DATA: Please see below. CURRENT MEDICATIONS: Please see below. MENTAL STATUS EXAMINATION: Patient is a 26-year old male, pleasant, activated in behavior, but cooperative , fair hygeine, multiple tattoos on arms and neck, thin. Speech: Is rapid, but rhythm and prosody are wnl. coherent and spontaneous. Language skills are intact. Thought processes: Clear/Goal directed. Thought content: focused on applying for an inpatient substance abuse treatment program Abstract reasoning, and computation: intact. Description of associations: intact. Description of abnormal or psychotic thoughts: NO hallucinations, delusions, preoccupation with violence, homicidal or suicidal ideation, and obsessions. Judgment: limited Insight: limited Orientation to time, place and person. Recent and remote memory: intact. Attention span and concentration:fair. Language: Normal. Fund of knowledge: good. Mood: "I'm good" Affect: expansive/hypomanic ASSESSMENT: 1. Bipolar 2 disorder, most recent episode mixed without psychotic features 2. Impulse control disorder. 3. Attention deficit hyperactivity disorder by history. 4. Opioid use disorder severe 5. Cannabis use disorder severe 6. Cocaine use disorder severe PROBLEM LIST: 1. Risk for suicide. 2. Risk for self injury. 3. Depression. 4. Substance abuse. 5. Poor Impulse control. PLAN: 1. Patient was admitted on a 9.39 legal status. 2. Complete history was obtained. 3. With patients permission, family contacted and database expanded. 4. Patients medication regimen will be reviewed and changed accordingly. -Continue Trazodone 50 mg by mouth daily when necessary at bedtime for insomnia. -Continue antidepressant therapy - Zoloft 100 mg by mouth every morning for depressive symptoms and anxiety. -Continue opiate withdrawal meds: Clonidine 0.1 mg by mouth 3 times a day when necessary autonomic dysregulation. Methocarbamol 750 mg 3 times a day when necessary abdominal spasm. Zofran 4 mg by mouth 3 times a day when necessary nausea vomiting. Loperamide 2 mg by mouth 3 times a day when necessary diarrhea. Ibuprofen 400 mg by mouth every 6 hours when necessary pain. certified financial planner please pursue applications for admission into an inpatient substance abuse treatment program. ESTIMATED LENGTH OF STAY: 3-5 DAYS. TIME SPENT: [30] minutes. Vital Signs Vital Signs Date Time Temp Pulse Resp B/P Pulse Ox O2 Delivery O2 Flow Rate FiO2 05/18/16 06:44 97.8 72 16 106/53 Current Medications Current Medications Al Hydrox/Mg Hydrox/Simethicone (Mylanta) 30 ml Q4HP PRN PO HEARTBURN/ INDIGESTION; Start 05/16/16 at 19:45; Stop 06/15/16 at 19:44 Clonidine HCl (Catapres) 0.1 mg TIDP PRN PO OPIATE WITHDRAWL; Start 05/16/16 at 19:45; Stop 06/15/16 at 19:44 Home Med (Med Rec Complete!) ASDIRECTED XX ; Start 05/16/16 at 12:30; Stop at 12:30; Status DC Ibuprofen (Advil) 400 mg Q6HP PRN PO PAIN Last administered on 05/18/16t 06:29 ; Start 05/16/16 at 19:45; Stop 06/15/16 at 19:44 Loperamide HCl (Imodium) 2 mg TIDP PRN PO DIARRHEA; Start 05/16/16 at 19:45; Stop 06/15/16 at 19:44 Magnesium Hydroxide (Milk Of Magnesia) 30 ml DAILYPRN PRN PO CONSTIPATION; Start 05/16/16 at 19:45; Stop 06/15/16 at 19:44 Methocarbamol (Robaxin) 750 mg TIDP PRN PO ABDOMINAL SPASMS OR CRAMPS; Start at 19:45; Stop 06/15/16 at 19:44 Nicotine (Nicoderm Cq 21mg) 1 patch DAILY TD Last administered on 05/18/16 08: 08; Start 05/16/16 at 09:00; Stop 06/15/16 at 08:59 Ondansetron HCl (Zofran) 4 mg TIDP PRN PO NAUSEA; Start 05/16/16 at 19:45; Stop 06/15/16 at 19:44 Sertraline HCl (Zoloft) 100 mg DAILY PO Last administered on 05/18/16 08:08; Start 05/16/16 at 09:00; Stop 06/15/16 at 08:59 Trazodone HCl (Desyrel) 50 mg QHSP PRN PO INSOMNIA Last administered on 20:43; Start 05/16/16 at 19:45; Stop 06/15/16 at 19:44 Allergies Coded Allergies: No Known Drug Allergy (Verified Allergy, Unknown, 10/29/15) ERNESTINA VINES MD May 18, 2016 08:49
--- NOTE | 2016-05-18 13:34 | IPNPDOC ---
Subjective Date Seen The patient was seen on 05/18/16. Subjective Chief Complaint/HPI The patient is a 26-year-old male admitted with a reason for visit of Unspecified Depressive D/O;. Events since last encounter requested to re evaluate left hand wound. Pulmonary: Denies: Cough, Dyspnea Cardiovascular: Denies: Chest Pain, Lt Headedness, Orthopnea, Palpitations, Paroxysmal Noc. Dyspnea Gastrointestinal: Denies: Abdominal Pain, Constipation, Diarrhea, Nausea, Vomiting Genitourinary: Denies: Dysuria, Frequency, Incontinence, Retention Objective Physical Examination General Exam: Positive: Alert Eye Exam: Positive: PERRLA ENT Exam: Positive: Atraumatic, Mucous membr. moist/pink, Pharynx Normal Chest Exam: Positive: Clear to auscultation, Normal air movement Heart Exam: Positive: Normal S1, Normal S2, Rate Normal, Regular Rhythm, Negative: Murmurs, Rubs Skin Exam: Positive: Nl turgor and temperature, Other skin issue (woundleft palm with no drainage, pt removed steri strips. ) Assessment /Plan Problems (1) Laceration of left hand Status: Acute Problem Text: * S/P dermabond- which is no longer intact. * steristrips applied- no longer intact * re applied steristips and clean dry dressing. * encouraged pt to keep area clean and dry. * Pt verbalized understanding. * Monitor. * No s/sx of infection at this time. * Tdap in ED (2) Hepatitis C, chronic Status: Chronic Problem Text: * last seen by Dr Brown 05/21/15 * arrange f/u at d/c Plan/VTE VTE Prophylaxis Ordered?: No (ambulatory) VS, I&O, 24H, Fishbone Vital Signs/I&O Vital Signs Date Time Temp Pulse Resp B/P Pulse Ox O2 Delivery O2 Flow Rate FiO2 05/18/16 06:44 97.8 72 16 106/53 Jess Munoz May 18, 2016 13:34
--- NOTE | 2016-05-18 15:21 | HPE ---
DATE OF ADMISSION: 05/16/2016 HISTORY OF PRESENT ILLNESS: Please refer to the psychiatric history and evaluation for further details on this admission. This examination and history is intended for medical issues, which may need treatment, followup or consultation on this 26-year-old male. SOCIAL HISTORY: He lives in [place]. He has a biological son. He chews tobacco daily, occasionally smokes cigarettes. Ethyl alcohol (EtOH) - none. Illicit drugs - opiates, cocaine, cannabinus. ALLERGIES: NO KNOWN DRUG ALLERGIES. PAST MEDICAL HISTORY: Hepatitis C. PAST SURGICAL HISTORY: Bilateral inguinal hernia repair. History of extracorporeal shockwave lithotripsy and basket extraction times two. HOME MEDICATIONS: None. CT C-spine negative. Chest x-ray normal. Left hand x-ray no acute fracture. Old fracture base of the cyst metacarpal bone. Head CT negative. WBC 9.6, hemoglobin 14.8, hematocrit 42.3. Electrolytes are normal. BUN 12, creatinine 1.1, total bilirubin 1.8, direct bilirubin 0.4, AST 80, ALT 248. Urine was positive for opioids, cocaine, cannabinoids. FAMILY HISTORY: Mother alive, polycystic kidney disease (PCKD), history of breast cancer in remission. Father alive with Crohn's. A 10-systems review was done. He was complaining of soreness of the laceration of his left hand. Otherwise, unremarkable. PHYSICAL EXAMINATION: 26-year-old, cooperative male, in no acute distress. Vital signs stable. Patient is alert and oriented times three. He has an abrasion on the top of his head. No redness or drainage. Pupils equal and reactive to light. Extraocular movements intact. Cornea and sclera clear. Conjunctiva was normal. No facial asymmetry. Pharynx, tongue, and gum is pink and moist. Tongue is midline. Neck is supple, without lymphadenopathy. No thyromegaly. No goiter. Carotids 2+ without bruit. Chest clear to auscultation, without wheeze or retraction. Heart is regular, without murmur or gallop. Abdomen benign. Bowel sounds positive. Genitourinary () and rectal not done. Extremities show equal strength, full range of motion. No cyanosis, clubbing or edema. 1 inch laceration to the palm of the left hand, which had been glued but the glue has come apart much earlier today, shortly after it was glued. The laceration is open. No bleeding at this time, redness or drainage. Capillary refill less than 2 seconds. Peripheral pulses equal and palpable bilaterally. IMPRESSION AND PLAN: 1. History hepatitis C. 2. Laceration open to the palm of the left hand. Steri-Stripped, dry dressing applied. 3. Slightly elevated liver enzymes. Will need outpatient followup and referral appointment with Dr. Brown for the hepatitis. 4. History of polysubstance abuse. Change dressing to the left hand daily. 5. Smoking cessation. Nicotine patch offered. No other acute medical issues. EKG on file.
[2016-05-18 18:00] VITALS: BP 144/72
--- NOTE | 2016-05-18 19:33 | EDDOCDS ---
Physician Documentation [facility] Name: Elmer Marley Age: 26 yrs Sex: Male : 1990 Arrival Date: 05/16/2016 Time: 05:25 Bed [facility] Private MD: Disposition: 05/16/16 11:51 Hospitalization ordered by Zana Davila for Inpatient Admission. Preliminary diagnosis is Suicidal ideations. - Bed requested for Admit. - Status is Inpatient Admission. pjf - Condition is Stable. - Problem is new. - Symptoms are unchanged. Historical: - Allergies: No known drug Allergies; - Home Meds: 1. none - PMHx: Hepatitis C; Polycystic Kidney Disease; - PSHx: Hernia repair; Lithotripsy; - Social history: Smoking status: Patient uses tobacco products, current every day smoker. Patient uses street drugs, cocaine, heroin, No barriers to communication noted, The patient speaks fluent Nicaraguan, Speaks appropriately for age. - Family history: Not pertinent. - Immunization history: Last tetanus immunization: unknown. - : The pt / caregiver states he / she is not on anticoagulants. Home medication list is obtained from the patient. - Last oral intake was: yesterday. - Exposure Risk Screening:: None identified. Vital Signs: 05/16 05:32 BP 140 / 91 (auto/); ko2 05:33 BP 140 / 91 LA Supine (auto/reg); Pulse 88 MON; Resp 20 S; Temp 99.5(O); Pulse Ox 96% cln on R/A; Weight 69.8 kg / 153.88 lbs (M); Height 5 ft. 8 in. (172.72 cm) (R); Pain 0/10; 05:34 Pulse 92 MON; Pulse Ox 95% ; ko2 05:45 BP 138 / 93 (auto/); ko2 05:46 Pulse 90 MON; Pulse Ox 96% ; ko2 06:02 BP 137 / 85 (auto/); ko2 06:03 Pulse 101 MON; Pulse Ox 98% ; ko2 06:17 BP 138 / 83 (auto/); jmk 06:18 Pulse 88 MON; Pulse Ox 100% ; jmk 06:32 BP 144 / 86 (auto/); jmk 06:32 Pulse 91 MON; jmk 06:47 BP 137 / 85 (auto/); jmk 06:47 Pulse 79 MON; jmk 07:02 BP 140 / 89 (auto/); jmk 07:03 Pulse 71 MON; Pulse Ox 99% ; jmk 07:17 BP 132 / 84 (auto/); jmk 07:18 Pulse 81 MON; Pulse Ox 99% ; jmk 08:00 BP 133 / 85; Pulse 84; Resp 16; Temp 97.6; Pulse Ox 98% ; jmk 16:14 BP 101 / 57; Pulse 78; Resp 17; Temp 98; Pulse Ox 97% ; mb9 18:24 BP 121 / 80; Pulse 75; Resp 18; Temp 97.3(O); Pulse Ox 97% on R/A; Pain 0/10; mb9 05:33 Body Mass Index 23.40 (69.80 kg, 172.72 cm) cln Trauma Score (Adult): 05:44 Eye Response: spontaneous(1); Verbal Response: oriented(1); Motor Response: obeys ko2 commands(2); Systolic BP: > 89 mm Hg(4); Respiratory Rate: 10 to 29 per min(4); Katie Score: 15; Trauma Score: 12 MDM: 05:34 NS 0.9% 1000 ml IV at bolus once ordered. mm11 05:34 Tetanus- Diptheria-Acellular Pertussis 0.5 ml IM once; Routine booster 10-64yrs, >64 mm11 with child contact [place] ordered. 05:34 Tellers Supervisor/Pulse Ox/q 15 min VS ordered. mm11 05:34 Accucheck ordered. mm11 05:34 IV Saline Lock ordered. mm11 05:34 Rhythm Strip to chart ordered. mm11 05:34 Trauma Level 2 Designation ordered. mm11 05:34 Consult PFS/PSA/Reduction Furnace Operator Helper ordered. mm11 05:34 Consult PFS/PSA/Reduction Furnace Operator Helper: Patient's case requires discussion with on-call mm11 Psychiatrist ordered. 05:34 PSA/PFS to call Nursing Boning Room Worker, to enter patient data on [place] Safe [place] if patient mm11 involuntarily admitted or transferred for SI or HI ordered. 05:34 Confirm accurate psychiatric medication list and times of last dosage ordered. mm11 05:34 Detain Pt Until Medically/PFS Cleared ordered. mm11 05:35 CBC with Diff Ordered. EDMS 05:35 Type & Screen Ordered. EDMS 05:35 Acetaminophen Level Ordered. EDMS 05:35 Basic Metabolic Profile Ordered. EDMS 05:35 Drug Eval Toxicology ED Only Ordered. EDMS 05:35 Ethyl Alcohol (ethanol) Ordered. EDMS 05:35 Liver Profile Ordered. EDMS 05:35 Salicylate Level Ordered. EDMS 05:35 Thyroid Stimulating Hormone Ordered. EDMS 05:35 CT Head Without Contrast Ordered. EDMS 05:36 ECG WITH READING ER PHYS+CARDIAG ordered. EDMS 05:36 CT Spine,Cervical W/o Contrast Ordered. EDMS 05:37 Chest, 1 View Ordered. EDMS 05:37 Hand, Complete Ordered. EDMS 07:09 Dermabond to bedside ordered. mm11 07:10 CBC with Diff Reviewed. mm11 07:10 Acetaminophen Level Reviewed. mm11 07:10 Basic Metabolic Profile Reviewed. mm11 07:10 Liver Profile Reviewed. mm11 07:10 Salicylate Level Reviewed. mm11 07:10 Type & Screen Reviewed. mm11 07:10 Ethyl Alcohol (ethanol) Reviewed. mm11 07:10 Thyroid Stimulating Hormone Reviewed. mm11 07:10 CT Spine,Cervical W/o Contrast Reviewed. mm11 07:25 Drug Eval Toxicology ED Only Reviewed. mm11 07:36 Financial registration complete. lg 08:33 [facility] [place] Payment Agreement was scanned into [employer] and attached to record. lg 09:19 Consult PFS/PSA/Reduction Furnace Operator Helper complete. ca 09:19 Consult PFS/PSA/Reduction Furnace Operator Helper: Patient's case requires discussion with on-call ca Psychiatrist complete. 09:19 PSA/PFS to call Nursing Boning Room Worker, to [place] if patient ca involuntarily admitted or transferred for SI or HI complete. 11:11 REGULAR DIET PLASTIC ALMEIDA+DIET ordered. EDMS 15:15 REGULAR DIET PLASTIC ALMEIDA+DIET ordered. EDMS 15:48 ECG/EKG was scanned into [employer] and attached to record. gb 17:35 Admit to IMHU: ordered. EDMS 17:49 [facility] Legal paperwork was scanned into [employer] and attached to record. ml4 05/17 11:21 T-Sheet-- Draft Copy was scanned into [employer] and attached to record. gb Administered Medications: 05/16 06:06 Drug: NS 0.9% 1000 ml [sodium chloride 0.9 % intravenous solution] Route: IV; Rate: ko2 bolus; Site: right antecubital; 06:06 Drug: Tetanus- Diptheria-Acellular Pertussis 0.5 ml [diphth,pertussis(acel),tetanus 2.5 ko2 Lf unit-8 mcg-5 Lf/0.5mL IM syringe (0.5 mL)] {Retail Sales Teammate: [employer]. Exp: 05/12/2018. Lot #: [id number]. } Route: IM; Site: right deltoid; Signatures: Dispatcher [employer] EDWandy Graves MD MD sd1 Ofelia Sewell, PSA PSA ca Radha Mane, Reg Reg gb Abdias Valencia, Reg Reg lg Davidson August, Security Aide LetitiaDixie Downs, PSA PSA ml4 Brian Brown, DO mm11 Erika Larry,RN RN ko2 The chart was reviewed and I authenticate all verbal orders and agree with the evaluation and treatment provided.Corrections: (The following items were deleted from the chart) 06:06 05:35 Apply Krystal Butterfield to Patient. ordered. mm11 ko2 Attachments: 08:33 [facility] Payment Agreement lg 15:48 ECG/EKG 05/17 11:21 T-Sheet-- Draft Copy gb Chart Complete MTDD
--- NOTE | 2016-05-18 19:33 | EDDOCDS ---
Physician Documentation [facility] Name: Elmer Marley Age: 26 yrs Sex: Male : 1990 Arrival Date: 05/16/2016 Time: 05:25 Bed [facility] Private MD: Disposition: 05/16/16 11:51 Hospitalization ordered by Zana Davila for Inpatient Admission. Preliminary diagnosis is Suicidal ideations. - Bed requested for Admit. - Status is Inpatient Admission. pjf - Condition is Stable. - Problem is new. - Symptoms are unchanged. Historical: - Allergies: No known drug Allergies; - Home Meds: 1. none - PMHx: Hepatitis C; Polycystic Kidney Disease; - PSHx: Hernia repair; Lithotripsy; - Social history: Smoking status: Patient uses tobacco products, current every day smoker. Patient uses street drugs, cocaine, heroin, No barriers to communication noted, The patient speaks fluent Macedonian, Speaks appropriately for age. - Family history: Not pertinent. - Immunization history: Last tetanus immunization: unknown. - : The pt / caregiver states he / she is not on anticoagulants. Home medication list is obtained from the patient. - Last oral intake was: yesterday. - Exposure Risk Screening:: None identified. Vital Signs: 05/16 05:32 BP 140 / 91 (auto/); ko2 05:33 BP 140 / 91 LA Supine (auto/reg); Pulse 88 MON; Resp 20 S; Temp 99.5(O); Pulse Ox 96% cln on R/A; Weight 69.8 kg / 153.88 lbs (M); Height 5 ft. 8 in. (172.72 cm) (R); Pain 0/10; 05:34 Pulse 92 MON; Pulse Ox 95% ; ko2 05:45 BP 138 / 93 (auto/); ko2 05:46 Pulse 90 MON; Pulse Ox 96% ; ko2 06:02 BP 137 / 85 (auto/); ko2 06:03 Pulse 101 MON; Pulse Ox 98% ; ko2 06:17 BP 138 / 83 (auto/); jmk 06:18 Pulse 88 MON; Pulse Ox 100% ; jmk 06:32 BP 144 / 86 (auto/); jmk 06:32 Pulse 91 MON; jmk 06:47 BP 137 / 85 (auto/); jmk 06:47 Pulse 79 MON; jmk 07:02 BP 140 / 89 (auto/); jmk 07:03 Pulse 71 MON; Pulse Ox 99% ; jmk 07:17 BP 132 / 84 (auto/); jmk 07:18 Pulse 81 MON; Pulse Ox 99% ; jmk 08:00 BP 133 / 85; Pulse 84; Resp 16; Temp 97.6; Pulse Ox 98% ; jmk 16:14 BP 101 / 57; Pulse 78; Resp 17; Temp 98; Pulse Ox 97% ; mb9 18:24 BP 121 / 80; Pulse 75; Resp 18; Temp 97.3(O); Pulse Ox 97% on R/A; Pain 0/10; mb9 05:33 Body Mass Index 23.40 (69.80 kg, 172.72 cm) cln Trauma Score (Adult): 05:44 Eye Response: spontaneous(1); Verbal Response: oriented(1); Motor Response: obeys ko2 commands(2); Systolic BP: > 89 mm Hg(4); Respiratory Rate: 10 to 29 per min(4); Katie Score: 15; Trauma Score: 12 MDM: 05:34 NS 0.9% 1000 ml IV at bolus once ordered. mm11 05:34 Tetanus- Diptheria-Acellular Pertussis 0.5 ml IM once; Routine booster 10-64yrs, >64 mm11 with child contact [place] ordered. 05:34 Preschool Special Education Teacher/Pulse Ox/q 15 min VS ordered. mm11 05:34 Accucheck ordered. mm11 05:34 IV Saline Lock ordered. mm11 05:34 Rhythm Strip to chart ordered. mm11 05:34 Trauma Level 2 Designation ordered. mm11 05:34 Consult PFS/PSA/Comparison Shopper ordered. mm11 05:34 Consult PFS/PSA/Comparison Shopper: Patient's case requires discussion with on-call mm11 Psychiatrist ordered. 05:34 PSA/PFS to call Nursing Government Service Executive, to enter [place] data [place] if patient mm11 involuntarily admitted or transferred for SI or HI ordered. 05:34 Confirm accurate psychiatric medication list and times of last dosage ordered. mm11 05:34 Detain Pt Until Medically/PFS Cleared ordered. mm11 05:35 CBC with Diff Ordered. EDMS 05:35 Type & Screen Ordered. EDMS 05:35 Acetaminophen Level Ordered. EDMS 05:35 Basic Metabolic Profile Ordered. EDMS 05:35 Drug Eval Toxicology ED Only Ordered. EDMS 05:35 Ethyl Alcohol (ethanol) Ordered. EDMS 05:35 Liver Profile Ordered. EDMS 05:35 Salicylate Level Ordered. EDMS 05:35 Thyroid Stimulating Hormone Ordered. EDMS 05:35 CT Head Without Contrast Ordered. EDMS 05:36 ECG WITH READING ER PHYS+CARDIAG ordered. EDMS 05:36 CT Spine,Cervical W/o Contrast Ordered. EDMS 05:37 Chest, 1 View Ordered. EDMS 05:37 Hand, Complete Ordered. EDMS 07:09 Dermabond to bedside ordered. mm11 07:10 CBC with Diff Reviewed. mm11 07:10 Acetaminophen Level Reviewed. mm11 07:10 Basic Metabolic Profile Reviewed. mm11 07:10 Liver Profile Reviewed. mm11 07:10 Salicylate Level Reviewed. mm11 07:10 Type & Screen Reviewed. mm11 07:10 Ethyl Alcohol (ethanol) Reviewed. mm11 07:10 Thyroid Stimulating Hormone Reviewed. mm11 07:10 CT Spine,Cervical W/o Contrast Reviewed. mm11 07:25 Drug Eval Toxicology ED Only Reviewed. mm11 07:36 Financial registration complete. lg 08:33 [facility] Payment Agreement was scanned into [employer] and attached to record. lg 09:19 Consult PFS/PSA/Comparison Shopper complete. ca 09:19 Consult PFS/PSA/Comparison Shopper: Patient's case requires discussion with on-call ca Psychiatrist complete. 09:19 PSA/PFS to call Nursing Government Service Executive, to enter [place] if patient ca involuntarily admitted or transferred for SI or HI complete. 11:11 REGULAR DIET PLASTIC ALMEIDA+DIET ordered. EDMS 15:15 REGULAR DIET PLASTIC ALMEIDA+DIET ordered. EDMS 15:48 ECG/EKG was scanned into [employer] and attached to record. gb 17:35 Admit to IMHU: ordered. EDMS 17:49 [facility] Legal paperwork was scanned into [employer] and attached to record. ml4 05/17 11:21 T-Sheet-- Draft Copy was scanned into [employer] and attached to record. gb Administered Medications: 05/16 06:06 Drug: NS 0.9% 1000 ml [sodium chloride 0.9 % intravenous solution] Route: IV; Rate: ko2 bolus; Site: right antecubital; 06:06 Drug: Tetanus- Diptheria-Acellular Pertussis 0.5 ml [diphth,pertussis(acel),tetanus 2.5 ko2 Lf unit-8 mcg-5 Lf/0.5mL IM syringe (0.5 mL)] {Hospital Carrier: [employer]. Exp: 05/12/2018. Lot #: [id number]. } Route: IM; Site: right deltoid; Signatures: Dispatcher [employer] EDWadny Graves MD MD sd1 Ofelia Sewell, PSA PSA ca Radha Mane, Reg Reg gb Abdias Valencia, Reg Reg lg Davidson August, Security Aide LetitiaDixie Downs, PSA PSA ml4 Brian Brown, DO mm11 Erika Larry,RN RN ko2 The chart was reviewed and I authenticate all verbal orders and agree with the evaluation and treatment provided.Corrections: (The following items were deleted from the chart) 06:06 05:35 Apply Krystal Butterfield to Patient. ordered. mm11 ko2 Attachments: 08:33 [facility] Payment Agreement lg 15:48 ECG/EKG 05/17 11:21 T-Sheet-- Draft Copy gb Chart Complete MTDD
--- NOTE | 2016-05-18 19:34 | EDDOCDS ---
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 suggesting muscular spasm.; 3. Minimal multilevel spondylosis.; Thank you for your kind referral of this patient.; ; Radiology Order: Chest, 1 View Test: Chest, 1 View REASON FOR EXAMINATION: Trauma; Clinical: Trauma .; ; Comparison: 06/20/2009 .; ; Findings:; The mediastinum and cardiac silhouette are stable and within normal limits for; portable technique. The lung smalls are clear without acute consolidation,; effusion, or pneumothorax. Skeletal structures are intact.; ; Impression:; Normal portable chest x-ray; ; ; Signed by; Christian Sierra MD 05/16/2016 07:47 A; Radiology Order: Hand, Complete Test: Hand, Complete REASON FOR EXAMINATION: Trauma; Clinical: Trauma.; ; Technique: AP, lateral, bilateral oblique views of the left hand.; ; Comparison: 02/21/2016.; ; Findings:; Old fracture at the base of the fifth metacarpal bone is again identified. No; new, acute fracture or dislocation. Surrounding soft tissues unremarkable.; Joint space is normal.; ; Impression:; Old fracture at the base of the fifth metacarpal bone.; No acute fracture or dislocation identified.; ; ; Signed by; Christian Sierra MD 05/16/2016 07:59 A; Outcome: 06:08 CT Study completed. ko2 11:51 Decision to Hospitalize by Provider. sd1 18:25 Discharge Assessment: Patient awake, alert and oriented x 3. No cognitive and/or mb9 functional deficits noted. Patient verbalized understanding of disposition instructions. patient administered narcotics - no. The following High Risk Discharge criteria are identified: None. Admitted to Psych. Condition: good Condition: stable Condition: improved. Property :Personal belongings accompany Pt. 18:32 Patient left the ED. pjf Signatures: Dispatcher [employer] EDMS Wandy Brand MD MD sd1 Cinthia Urias RN Hernandez Estrada RN RN jmk Anderson, Cathy, PSA PSA ca Barnhardt, Radha, Reg Reg gb Ganter, LoriLee, Reg Reg lg Mariangel, Davidson, Security Aide Securpf Beth Sosa, Safety Security Officer Unit ml3 Dixie Mcknight, PSA PSA ml4 Brian Brown, DO DO mm11 Phuc, Tamiko, SEISMOGRAPH OBSERVER SEISMOGRAPH OBSERVER david Zenon Hoffman jml1 Katya Reyes,RN RN js13 Erika Larry,RN RN ko2 Camden Cortez, SEISMOGRAPH OBSERVER SEISMOGRAPH OBSERVER jrd Ramon Phillips,RN RN mb9 Tyra, Tashia, SEISMOGRAPH OBSERVER SEISMOGRAPH OBSERVER cln Corrections: (The following items were deleted from the chart) 07:12 06:41 Psych Safety Check: Location: Visual Assessment: jeremy Carreon 07:12 06:58 Psych Safety Check: Location: Visual Assessment: jeremy Carreon jrd Chart Complete MTDD
[2016-05-18] MEDS: traZODone 50 MG TAB PO PRN (20:38)
[2016-05-18 21:00] VITALS: BP 144/72
[2016-05-19 06:44] VITALS: BP 121/76
[2016-05-19] MEDS: SERTRALINE 100 MG TAB PO SCH (08:28)
[2016-05-19] MEDS: NICOTINE 21MG/24HR 1 EA TRANSDERMAL TD SCH (08:29)
--- NOTE | 2016-05-19 10:36 | DS.PDOC ---
[facility] Discharge Summary Discharge Summary DATE OF ADMISSION: May 16, 2016 at 18:45 DATE OF DISCHARGE: 05/19/2016 DISCHARGE DIAGNOSES: 1. Bipolar 2 disorder, most recent episode mixed without psychotic features 2. Impulse control disorder. 3. Attention deficit hyperactivity disorder by history. 4. Opioid use disorder severe 5. Cannabis use disorder severe 6. Cocaine use disorder severe REASON FOR ADMISSION: Patient is a male with past psychiatric history significant for bipolar 2 disorder, impulse control disorder, and ADHD. Patient presents to the emergency department by ambulance after making cuts to his throat as well as bashing his head on the wall, and jumping from a second story window. Patient suffered a laceration to left hand from the window. Pt denied loss of consciousness. Patient admitted this behavior occurred in the context of abusing powder cocaine, cannabis, IV cocaine , and IV heroin. In the emergency department patient stated the above behaviors were an attempt to commit suicide. Patient reports many recent psychosocial stressors including : Being recently released from [facility] where he'd been for 9 months due to domestic violence charges, the mother of his child. He is on probation for assault. The night prior to admission, pt became upset while thinking about his ex-, from whom he is , and his young son. There is an order of protection against him since he was released from the [facility] 01/2016. Patient reports being told that this for protection went from temporary to permanent. As a result of his anger, pt says he "shot up" cocaine last night and also used heroin IV. On interview, patient is activated in behavior/hypomanic. His affect is bright. Rate of speech is rapid, but not pressured. Patient's mood is expansive. He is focused on sobriety. She expresses insight into his need to be sober. He stated , "drugs make my depression worse"..."my problems grow as my high grows". Patient stated he needs to"put down the needle". Patient is very interested in initiating process of being admitted into an inpatient substance abuse treatment program. Patient reports regret in his suicide attempt. He expressed insight that he would never had behaved in that manner if not intoxicated. Patient reports that he has poor impulse control, tends to have angry outbursts , and has been impulsive. He denies loss of interest or changes in energy. He does report decreased concentration. Denies any changes in appetite. Denies hopelessness, helplessness, worthlessness, crying spells, or suicidal ideation. The patient does report periods of time with decreased need for sleep, increase in goal-directed activity, flight of ideas, pressured speech, increased risk- taking behaviors, increased spending and impulsivity. Patient's longest period of sobriety was 9 months while in [facility] prior to his release 02/20/2016. The patient does report endorsing these symptoms even when not under the influence of drugs. He denies further signs or symptoms of depression, dunia, psychosis, anxiety disorder, panic disorder, and symptoms of posttraumatic stress disorder (PTSD). CONSULTANTS INVOLVED: none HOSPITAL COURSE: Patient presented to the [facility] s/p suicide attempt by jumping from a 2nd floor window. He reported recent psychosocial stressors including loss of custody of his baby son. He reported being intoxicated when exhibiting these behaviors. He denied SI/HI and AH/VH since admission. He presented manic in behavior, but has significantly calmed, this likely drug induced. He does hold a dx of Bipolar d/o. He has been recently released from a detention [facility] sentence, reporting his mood while in [facility] was depressed more so than anything else. MENTAL STATUS EXAMINATION ON DISCHARGE: Patient is pleasant, less activated in behavior, but cooperative, fair hygeine, multiple tattoos on arms and neck, thin. Speech: Is rapid, but rhythm and prosody are wnl. coherent and spontaneous. Language skills are intact. Thought processes: Clear/Goal directed. Thought content: focused on sobriety. Abstract reasoning, and computation: intact. Description of associations: intact. Description of abnormal or psychotic thoughts: NO hallucinations, delusions, preoccupation with violence, homicidal or suicidal ideation, and obsessions. Judgment: fair Insight:fair. Orientation to time, place and person. Recent and remote memory: intact. Attention span and concentration:fair. Language: Normal. Fund of knowledge: good. Mood: good Affect: full. MEDICATIONS ON DISCHARGE: Zoloft 100mg po qam for depression/anxiety Trazodone 50mg po qhs prn insomnia PLAN/FOLLOWUP ARRANGEMENTS: mechanical planner has set PCP and [facility] appt for within 2 weeks of discharge. The amount of time spent in the coordination of care for this patient was approximately [40] minutes. Vital Signs Vital Sign - Last 24 Hours 05/18/16 05/18/16 05/19/16 18:00 21:00 06:44 Temp 98.4 98.4 97.4 Pulse 65 65 58 Resp 16 16 16 B/P 144/72 144/72 121/76 Medications Scheduled Bacitracin Base (Bacitracin) 500 Unit/Gm Oin #1 1 TUBE TOP BIDP laceration Nicotine (Nicotine Transdermal Syst) 21 Mg/24 Hr Dis #14 1 PATCH TD DAILY SMOKING CESSATION Sertraline HCl (Sertraline HCl) 100 Mg Tab #7 100 MG PO DAILY DEPRESSION Scheduled PRN Trazodone HCl (Trazodone HCl) 50 Mg Tab #7 50 MG PO QHSP PRN PRN INSOMNIA Allergies Coded Allergies: No Known Drug Allergy (Verified Allergy, Unknown, 10/29/15) ERNESTINA VINES MD May 19, 2016 10:36
[2016-05-19] MEDS ORDERED: SERT-138 PO (10:38)
[2016-05-19] MEDS ORDERED: TRAZO50TA PO (10:38)
[2016-05-19] MEDS ORDERED: BACI500O8 TOP (11:56)
[2016-05-19] MEDS ORDERED: NICO21PAT TD (11:56)
== END 2016-05-19 13:40 | disposition home or self-care (01) | DRG 753 ==
LOC: M ED 05:25 → M PSY 18:45
PROVIDERS: ADMIT Psychiatry & Neurology Psychiatry; ATTEND Psychiatry & Neurology Psychiatry
DX: F31.63 Bipolar disorder, current episode mixed, severe, without psychotic features (principal); F63.9 Impulse disorder, unspecified; F90.9 Attention-deficit hyperactivity disorder, unspecified type; F11.20 Opioid dependence, uncomplicated; F12.20 Cannabis dependence, uncomplicated; F14.20 Cocaine dependence, uncomplicated; S61.412A Laceration without foreign body of left hand, initial encounter; F17.210 Nicotine dependence, cigarettes, uncomplicated; B18.2 Chronic viral hepatitis C; F17.220 Nicotine dependence, chewing tobacco, uncomplicated; Y92.009 Unspecified place in unspecified non-institutional (private) residence as the place of occurrence of the external cause

== ENCOUNTER → 2018-05-31 | Outpatient (CLI) | payer MEDICAID ==
[~2018-05-31] MED LIST changes: +ABIL10TA9 PO; -ABIL1TAB5 PO; +BACI500O8 TOP; +CIPR-249 PO; +FLOM0.4C39 PO; -FLOM5CAP PO; -MELA0.02 PO; +MELA3TAB49 PO; +NICO21PAT TD; +PERC5TAB12 PO; -PERC5TAB6 PO; +SERT-138 PO; +TRAZ-160 PO; -TRAZ50TA4 PO; +TRAZO50TA PO; -ZOFR20TA PO; +ZOFR4TAB16 PO
== END ==
LOC: M OUTALCOH 07:55
PROVIDERS: ATTEND Psychiatry & Neurology Psychiatry
DX: Z13.89 Encounter for screening for other disorder (principal); F15.20 Other stimulant dependence, uncomplicated

== ENCOUNTER 2018-06-06 09:30 | Outpatient (RCR) | payer MEDICAID | END 2018-06-24 | LOC: M OUTALCOH 09:30 | PROVIDERS: ATTEND Psychiatry & Neurology Psychiatry | DX: F15.20 Other stimulant dependence, uncomplicated (principal); F11.20 Opioid dependence, uncomplicated; F17.200 Nicotine dependence, unspecified, uncomplicated ==

== ENCOUNTER → 2018-06-13 | Outpatient (REF) | payer MEDICAID ==
[2018-06-13 10:24] LABS: HEMATOCRIT 45.2 % (42.0-52.0); HEMOGLOBIN 15.7 g/dl (13.5-17.5); MEAN CORPUSCULAR HEMOGLOBIN 30.4 pg (27.0-33.0); MEAN CORPUSCULAR HGB CONC 34.7 g/dl (32.0-36.5); MEAN CORPUSCULAR VOLUME 87.4 fl (80.0-96.0); RED BLOOD COUNT 5.17 10^6/uL (4.30-6.10); WHITE BLOOD COUNT 8.4 10^3/uL (4.0-10.0)
[2018-06-13 10:47] LABS: PLATELET COUNT, AUTOMATED 32 10^3/uL (150-450)
[2018-06-13 10:58] LABS: ALBUMIN 4.3 GM/DL (3.2-5.2); ALT/SGPT 121 U/L (12-78); BILIRUBIN,TOTAL 0.7 MG/DL (0.2-1.0); BLOOD UREA NITROGEN 13 MG/DL (7-18); CALCIUM LEVEL 8.5 MG/DL (8.5-10.1); CARBON DIOXIDE LEVEL 33 MEQ/L (21-32); CHLORIDE LEVEL 107 MEQ/L (98-107); CREATININE FOR GFR 0.77 MG/DL (0.70-1.30); GLOMERULAR FILTRATION RATE > 60.0 (>60); GLUCOSE, FASTING 86 MG/DL (70-100); HEPATITIS B SURFACE ANTIBODY POSITIVE (POSITIVE); POTASSIUM SERUM 4.1 MEQ/L (3.5-5.1); SODIUM LEVEL 143 MEQ/L (136-145); TOTAL PROTEIN 7.2 GM/DL (6.4-8.2)
[2018-06-13 11:07] LABS: HEPATITIS B SURFACE ANTIGEN NEGATIVE (NEGATIVE)
[2018-06-13 11:36] LABS: HIV 1&2 SCREEN CENTAUR NEGATIVE (NEGATIVE)
[2018-06-18 14:10] LABS: HEPATITIS A IgG TOTAL Positive (Negative); HEPATITIS B CORE ANTIBODY IGG Negative (Negative); HEPATITIS C QUANTITATION 6805350 IU/mL (.); HEPATITIS C VIRUS GENOTYPE 3 (.)
== END ==
LOC: M SFHCPLAZ 08:07
PROVIDERS: ATTEND Family Medicine
DX: B18.2 Chronic viral hepatitis C (principal)

== ENCOUNTER 2018-07-13 23:26 | Emergency (ER) | payer MEDICAID ==
[~2018-07-13] VITALS: Ht 172.7 cm; Wt 72.0 kg
[~2018-07-13 23:26] MED LIST changes: -/TAMS4CA GT; +FLOM0.4C39 GT; +OXYC1TAB23 PO; -PERCOCET PO
[2018-07-14 01:31] LABS: HEMATOCRIT 40.3 % (42.0-52.0); HEMOGLOBIN 14.6 g/dl (13.5-17.5); MEAN CORPUSCULAR HEMOGLOBIN 30.4 pg (27.0-33.0); MEAN CORPUSCULAR HGB CONC 36.2 g/dl (32.0-36.5); PLATELET COUNT, AUTOMATED 258 10^3/uL (150-450)
[2018-07-14 02:06] LABS: AMPHETAMINES LEVEL URINE NEGATIVE (NEGATIVE); BARBITURATES URINE NEGATIVE (NEGATIVE); BENZODIAZEPINES URINE NEGATIVE (NEGATIVE); CANNABINOIDS URINE NEGATIVE (NEGATIVE); COCAINE METABOLITE URINE NEGATIVE (NEGATIVE); METHADONE URINE NEGATIVE (NEGATIVE); OPIATES URINE NEGATIVE (NEGATIVE); PHENCYCLIDINE URINE NEGATIVE (NEGATIVE)
[2018-07-14 02:10] LABS: ACETAMINOPHEN LEVEL < 2.0 UG/ML (10.0-30.0); ALBUMIN 4.1 GM/DL (3.2-5.2); ALT/SGPT 110 U/L (12-78); BILIRUBIN,DIRECT 0.3 MG/DL (0.0-0.2); BLOOD UREA NITROGEN 19 MG/DL (7-18); CALCIUM LEVEL 8.9 MG/DL (8.5-10.1); CARBON DIOXIDE LEVEL 26 MEQ/L (21-32); CHLORIDE LEVEL 104 MEQ/L (98-107); CPK CREATINE PHOSPHOKINASE 2046 U/L (39-308); CREATININE FOR GFR 0.99 MG/DL (0.70-1.30); ETHYL ALCOHOL (ETHANOL) < 0.003 % (0.000-0.010); GLOMERULAR FILTRATION RATE > 60.0 (>60); GLUCOSE, FASTING 77 MG/DL (70-100); SALICYLATE LEVEL 1.8 MG/DL (5.0-30.0); SODIUM LEVEL 139 MEQ/L (136-145); THYROID STIMULATING HORMONE 0.895 uIU/ML (0.358-3.740); TOTAL PROTEIN 7.4 GM/DL (6.4-8.2)
[2018-07-14] MEDS ORDERED: NS IV ONE (02:30)
[2018-07-14] MEDS ORDERED: DILUENT IV ONE (02:30)
[2018-07-14 09:16] VITALS: BP 128/87
== END 2018-07-14 09:34 | disposition home or self-care (01) ==
LOC: M ED 23:26
DX: F15.10 Other stimulant abuse, uncomplicated (principal)
CPT/HCPCS: 36415; 80048; 80076; 80307; 82550; 84443; 85027; 99284; G0480

== ENCOUNTER → 2018-07-30 | Outpatient (CLI) | payer MEDICAID | LOC: M OUTALCOH 09:28 | PROVIDERS: ATTEND Psychiatry & Neurology Psychiatry | DX: F11.20 Opioid dependence, uncomplicated (principal); F16.20 Hallucinogen dependence, uncomplicated ==

== ENCOUNTER → 2018-08-24 | Outpatient (RCR) | payer MEDICAID | LOC: M OUTALCOH 08-06 11:47 | PROVIDERS: ATTEND Psychiatry & Neurology Psychiatry | DX: F16.20 Hallucinogen dependence, uncomplicated (principal); F11.20 Opioid dependence, uncomplicated; F17.200 Nicotine dependence, unspecified, uncomplicated ==

== ENCOUNTER 2018-09-21 08:45 | Outpatient (RCR) | payer MEDICAID ==
[~2018-09-21 08:45] MED LIST changes: -TRAZ-160 PO; +TRAZ-252 PO; +TRAZ1TAB10 PO; -TRAZO50TA PO
== END 2018-09-23 ==
LOC: M OUTALCOH 08:45
PROVIDERS: ATTEND Psychiatry & Neurology Psychiatry
DX: F16.20 Hallucinogen dependence, uncomplicated (principal); F11.20 Opioid dependence, uncomplicated; F17.200 Nicotine dependence, unspecified, uncomplicated

== ENCOUNTER → 2018-10-08 | Outpatient (REF) | payer OTHER ==
[2018-10-08 20:13] LABS: CHLAMYDIA DNA AMPLIFICATION NEGATIVE (NEGATIVE); GC DNA AMPLIFICATION NEGATIVE (NEGATIVE)
[2018-10-10 10:57] LABS: HIV 1&2 SCREEN CENTAUR NEGATIVE (NEGATIVE)
== END ==
LOC: M SFHCPLAZ 15:35
PROVIDERS: ATTEND Family Medicine
DX: Z11.3 Encounter for screening for infections with a predominantly sexual mode of transmission (principal)

== ENCOUNTER → 2018-10-12 | Outpatient (REF) | payer OTHER ==
[2018-10-12 15:50] LABS: ALBUMIN 4.3 GM/DL (3.2-5.2); BILIRUBIN,DIRECT 0.3 MG/DL (0.0-0.2); BILIRUBIN,TOTAL 2.2 MG/DL (0.2-1.0); TOTAL PROTEIN 7.9 GM/DL (6.4-8.2)
[2018-10-16 14:41] LABS: HEPATITIS C QUANTITATION <15 IU/mL (.)
== END ==
LOC: M SFHCPLAZ 12:38
PROVIDERS: ATTEND Internal Medicine Infectious Disease
DX: B18.2 Chronic viral hepatitis C (principal)

== ENCOUNTER → 2018-10-24 | Outpatient (RCR) | payer MEDICAID | LOC: M OUTALCOH 09-25 15:11 | PROVIDERS: ATTEND Psychiatry & Neurology Psychiatry | DX: F11.20 Opioid dependence, uncomplicated (principal); F16.20 Hallucinogen dependence, uncomplicated; F17.200 Nicotine dependence, unspecified, uncomplicated ==

== ENCOUNTER 2018-11-23 14:45 | Outpatient (RCR) | payer MEDICAID | END 2018-11-24 | LOC: M OUTALCOH 14:45 | PROVIDERS: ATTEND Psychiatry & Neurology Psychiatry | DX: F16.20 Hallucinogen dependence, uncomplicated (principal); F11.20 Opioid dependence, uncomplicated; F17.200 Nicotine dependence, unspecified, uncomplicated ==

== ENCOUNTER 2018-12-03 16:33 | Emergency (ER) | payer MEDICAID, OTHER ==
[~2018-12-03] VITALS: Ht 172.7 cm; Wt 79.4 kg
[2018-12-03] MEDS ORDERED: BUPR150T3 (16:40)
[2018-12-03] MEDS ORDERED: LISI-542 (16:40)
[2018-12-03] MEDS ORDERED: LIDOCAINE 2% MDV 20 ML VIAL SC ONE (18:30)
[2018-12-03] MEDS ORDERED: NEOSPORIN OINT 0.9 GM PKT (FLOOR STOCK) TOP ONE (19:00)
[2018-12-03 19:19] VITALS: BP 142/92
== END 2018-12-03 19:32 | disposition home or self-care (01) ==
LOC: M ED 16:33
DX: S11.91XA Laceration without foreign body of unspecified part of neck, initial encounter (principal); W10.9XXA Fall (on) (from) unspecified stairs and steps, initial encounter; Y92.099 Unspecified place in other non-institutional residence as the place of occurrence of the external cause; Y93.9 Activity, unspecified; Y99.9 Unspecified external cause status; I10 Essential (primary) hypertension; Z86.19 Personal history of other infectious and parasitic diseases; F90.9 Attention-deficit hyperactivity disorder, unspecified type; F17.200 Nicotine dependence, unspecified, uncomplicated; F12.10 Cannabis abuse, uncomplicated; F15.11 Other stimulant abuse, in remission; F11.11 Opioid abuse, in remission; Z88.8 Allergy status to other drugs, medicaments and biological substances

== ENCOUNTER 2018-12-11 09:54 | Emergency (ER) | payer MEDICAID, OTHER ==
[~2018-12-11] VITALS: Ht 172.7 cm; Wt 81.8 kg
[~2018-12-11 09:54] MED LIST changes: +BUPR150T3; +LISI-542
[2018-12-11 09:55] VITALS: BP 138/71
== END 2018-12-11 10:58 | disposition home or self-care (01) ==
LOC: M ED 09:54
DX: Z48.02 Encounter for removal of sutures (principal); F11.11 Opioid abuse, in remission; Z88.8 Allergy status to other drugs, medicaments and biological substances

== ENCOUNTER → 2020-01-21 | Outpatient (REF) | payer OTHER | LOC: M LAB REF 15:53 | PROVIDERS: ATTEND Surgery | DX: U07.1 COVID-19 (principal) ==

== ENCOUNTER → 2021-04-28 | Outpatient (CLI) | payer MEDICAID ==
[~2021-04-28] MED LIST changes: +BUPR150T12; -BUPR150T3; -LISI-542; +LISI5TAB11
== END ==
LOC: M OUTALCOH 08:35
PROVIDERS: ATTEND Psychiatry & Neurology Psychiatry
DX: Z13.39 Encounter for screening examination for other mental health and behavioral disorders (principal)

== ENCOUNTER 2021-05-06 11:00 | Outpatient (RCR) | payer MEDICAID | END 2021-05-24 | LOC: M OUTALCOH 11:00 | PROVIDERS: ATTEND Psychiatry & Neurology Psychiatry | DX: F16.21 Hallucinogen dependence, in remission (principal); F11.21 Opioid dependence, in remission; F15.21 Other stimulant dependence, in remission; F17.200 Nicotine dependence, unspecified, uncomplicated ==